=== PATIENT | male | born 1945 | race Caucasian/White ===

== ENCOUNTER 2020-11-03 21:12 | Observation (INO) | payer MEDICARE, OTHER ==
[~2020-11-03 21:12] MED LIST: atorvaSTATin 40 MG Tab PO SCH
[2020-11-03] MEDS ORDERED: Sodium Chloride 0.9% 2.5 ML Syringe FLUSH PRN (21:14)
[2020-11-03] MEDS ORDERED: Sodium Chloride 0.9% 10 ML Syringe FLUSH PRN (21:14)
[2020-11-03] MEDS ORDERED: Sodium Chloride 0.9% 10 ML SDV IV PRN (21:14)
[2020-11-03] MEDS ORDERED: Iopamidol 755 MG/ML 500 ML Multipack Bottle IVPUSH STA (21:22)
--- NOTE | 2020-11-03 21:44 | EDM.PDOC ---
ED HPI GENERAL MEDICAL PROBLEM - General Chief Complaint: Neuro Symptoms/Deficits Stated Complaint: RT SIDE NUMBNESS Time Seen by Provider: 11/03/20 21:16 Source of Information: Reports: Patient History Limitations: Reports: No Limitations - History of Present Illness INITIAL COMMENTS - FREE TEXT/NARRATIVE: 75-year-old male h/o GERD presents with right sided weakness and numbness with last known well = 7 PM. Patient denies fever, chills, headache, chest pain, shortness of breath, abdominal pain. ROS: A 10-point review of systems, other than pertinent positives and negatives as stated per HPI, is otherwise negative Past medical history: No additional pertinent history Past Surgical history: No additional pertinent history Social history: No additional pertinent history Family history: No additional pertinent history PHYSICAL EXAM General: AOx4, GCS = 15, No distress HEENT: dry mucous membrane Neck: supple, no meningismus, no Kernig or Brudzinski Cardiac: S1S2 RRR Respiratory: CTAB, no crackles or rales, no wheezing Abdomen: Soft, nontender, no rebound or guarding, nondistended, no pulsatile mass. Back: nontender Musculoskeletal: NVI distally, no deformity Neuro: No focal deficits, NIHSS = 1 for RLE drift - Related Data Allergies Allergy/AdvReac Type Severity Reaction Status Date / Time No Known Allergies Allergy Verified 11/03/20 21:18 Home Meds: Home Meds . [No Known Home Meds] 11/03/20 [History] ED ROS GENERAL - Review of Systems Review Of Systems: See Below (see dictation) ED EXAM, NEURO - Physical Exam Exam: See Below (see dictation) #1 Interpretation EKG Interpretation Comments: Heart rate = 80 bpm, normal sinus rhythm, normal QRS interval, no STEMI. EKG and rhythm strip interpreted by me at 2140 Course - Vital Signs Last Recorded V/S: Last Vital Signs Temp 97.4 F 11/03/20 21:19 Pulse 72 11/03/20 22:46 Resp 18 11/03/20 22:46 BP 136/90 11/03/20 22:46 Pulse Ox 93 L 11/03/20 22:46 - Orders/Labs/Meds Orders: Active Orders 24 hr Category Date Time Status Cardiac Monitoring [RC] . DIRECTED Care 11/03/20 21:14 Active EKG Documentation Completion [RC] STAT Care 11/03/20 21:14 Active Initiate Acute Stroke Protocol [RC] STAT Care 11/03/20 21:14 Active NIH Stroke Scale [RC] ASDIRECTED Care 11/03/20 21:14 Active Oxygen Therapy [RC] ASDIRECTED Care 11/03/20 21:14 Active UA W/MICROSCOPIC [URIN] Stat Lab 11/03/20 21:14 Ordered Sodium Chloride 0.9% [Normal Saline] Med 11/03/20 21:14 Active 10 ml IV ASDIRECTED PRN Sodium Chloride 0.9% [Saline Flush] Med 11/03/20 21:14 Active 10 ml FLUSH ASDIRECTED PRN Sodium Chloride 0.9% [Saline Flush] Med 11/03/20 21:14 Active 2.5 ml FLUSH ASDIRECTED PRN Peripheral IV Insertion Adult [OM.PC] Stat Oth 11/03/20 21:14 Ordered Medication Orders Sodium Chloride (Sodium Chloride 0.9% 10 Ml Syringe) 10 ml FLUSH ASDIRECTED PRN PRN Reason: Keep Vein Open Sodium Chloride (Sodium Chloride 0.9% 2.5 Ml Syringe) 2.5 ml FLUSH ASDIRECTED PRN PRN Reason: Keep Vein Open Sodium Chloride (Sodium Chloride 0.9% 10 Ml Sdv) 10 ml IV ASDIRECTED PRN PRN Reason: IV Use Labs: Laboratory Tests 11/03/20 11/03/20 11/03/20 Range/Units 21:15 21:15 21:15 WBC 6.59 (4.0-11.0) K/uL RBC 4.30 L (4.50-5.90) M/uL Hgb 13.8 (13.0-17.0) g/dL Hct 40.6 (38.0-50.0) % MCV 94.4 (80.0-98.0) fL MCH 32.1 H (27.0-32.0) pg MCHC 34.0 (31.0-37.0) g/dL RDW Std Deviation 50.5 (28.0-62.0) fl RDW Coeff of Ashley 15 (11.0-15.0) % Plt Count 195 (150-400) K/uL MPV 12.10 H (7.40-12.00) fL Neut % (Auto) 60.4 (48.0-80.0) % Lymph % (Auto) 29.1 (16.0-40.0) % Worth % (Auto) 8.5 (0.0-15.0) % Eos % (Auto) 1.8 (0.0-7.0) % Baso % (Auto) 0.2 (0.0-1.5) % Neut # (Auto) 4.0 (1.4-5.7) K/uL Lymph # (Auto) 1.9 (0.6-2.4) K/uL Worth # (Auto) 0.6 (0.0-0.8) K/uL Eos # (Auto) 0.1 (0.0-0.7) K/uL Baso # (Auto) 0.0 (0.0-0.1) K/uL Nucleated RBC % 0.0 /100WBC Nucleated RBCs # 0 K/uL INR 0.98 APTT 23.6 (18.6-31.3) SEC Sodium 141 (136-148) mmol/L Potassium 4.4 (3.5-5.1) mmol/L Chloride 106 (98-107) mmol/L Carbon Dioxide 25.9 (21.0-32.0) mmol/L BUN 20 H (7.0-18.0) mg/dL Creatinine 1.4 H (0.8-1.3) mg/dL Est Cr Clr Drug Dosing 50.04 mL/min Estimated GFR (MDRD) 49.4 ml/min Glucose 94 (74-106) mg/dL POC Glucose (70-99) mg/dL Calcium 8.6 (8.5-10.1) mg/dL Total Bilirubin 0.5 (0.2-1.0) mg/dL AST 14 L (15-37) IU/L ALT 14 (14-63) IU/L Alkaline Phosphatase 148 H (46-116) U/L Troponin I < 0.050 (0.000-0.056) ng/mL Total Protein 7.2 (6.4-8.2) g/dL Albumin 3.4 (3.4-5.0) g/dL Globulin 3.8 (2.6-4.0) g/dL Albumin/Globulin Ratio 0.9 (0.9-1.6) TSH 3rd Generation 3.35 (0.36-3.74) uIU/mL 11/03/20 Range/Units 22:08 WBC (4.0-11.0) K/uL RBC (4.50-5.90) M/uL Hgb (13.0-17.0) g/dL Hct (38.0-50.0) % MCV (80.0-98.0) fL MCH (27.0-32.0) pg MCHC (31.0-37.0) g/dL RDW Std Deviation (28.0-62.0) fl RDW Coeff of Ashley (11.0-15.0) % Plt Count (150-400) K/uL MPV (7.40-12.00) fL Neut % (Auto) (48.0-80.0) % Lymph % (Auto) (16.0-40.0) % Worth % (Auto) (0.0-15.0) % Eos % (Auto) (0.0-7.0) % Baso % (Auto) (0.0-1.5) % Neut # (Auto) (1.4-5.7) K/uL Lymph # (Auto) (0.6-2.4) K/uL Worth # (Auto) (0.0-0.8) K/uL Eos # (Auto) (0.0-0.7) K/uL Baso # (Auto) (0.0-0.1) K/uL Nucleated RBC % /100WBC Nucleated RBCs # K/uL INR APTT (18.6-31.3) SEC Sodium (136-148) mmol/L Potassium (3.5-5.1) mmol/L Chloride (98-107) mmol/L Carbon Dioxide (21.0-32.0) mmol/L BUN (7.0-18.0) mg/dL Creatinine (0.8-1.3) mg/dL Est Cr Clr Drug Dosing mL/min Estimated GFR (MDRD) ml/min Glucose (74-106) mg/dL POC Glucose 98 (70-99) mg/dL Calcium (8.5-10.1) mg/dL Total Bilirubin (0.2-1.0) mg/dL AST (15-37) IU/L ALT (14-63) IU/L Alkaline Phosphatase (46-116) U/L Troponin I (0.000-0.056) ng/mL Total Protein (6.4-8.2) g/dL Albumin (3.4-5.0) g/dL Globulin (2.6-4.0) g/dL Albumin/Globulin Ratio (0.9-1.6) TSH 3rd Generation (0.36-3.74) uIU/mL Meds: Medications Generic Name Dose Route Start Last Admin Trade Name Freq PRN Reason Stop Dose Admin Sodium Chloride 10 ml 11/03/20 21:14 Sodium Chloride 0.9% 10 Ml Syringe FLUSH ASDIRECTED PRN Keep Vein Open Sodium Chloride 2.5 ml 11/03/20 21:14 Sodium Chloride 0.9% 2.5 Ml Syringe FLUSH ASDIRECTED PRN Keep Vein Open Sodium Chloride 10 ml 11/03/20 21:14 Sodium Chloride 0.9% 10 Ml Sdv IV ASDIRECTED PRN IV Use Discontinued Medications Generic Name Dose Route Start Last Admin Trade Name Freq PRN Reason Stop Dose Admin Iopamidol 100 ml 11/03/20 21:22 11/03/20 21:36 Iopamidol 755 Mg/Ml 500 Ml Multipack Bottle IVPUSH 11/03/20 21:23 100 ml ONETIME STA Administration Departure - Departure Time of Disposition: 22:56 Disposition: Refer to Observation Condition: Good Clinical Impression: Stroke - Discharge Information *PRESCRIPTION DRUG MONITORING PROGRAM REVIEWED*: Not Applicable *COPY OF PRESCRIPTION DRUG MONITORING REPORT IN PATIENT MARIA C: Not Applicable Referrals: Steven Griffin MD [Primary Care Provider] - Forms: ED Department Discharge Sepsis Event Note (ED) - Evaluation Sepsis Screening Result: No Definite Risk - Focused Exam Vital Signs: Vital Signs Temp Pulse Resp BP Pulse Ox 11/03/20 22:46 72 18 136/90 93 L 11/03/20 22:15 73 18 135/84 94 L 11/03/20 22:00 77 18 142/87 H 94 L 11/03/20 21:45 75 18 152/95 H 93 L 11/03/20 21:19 97.4 F 87 18 147/89 H 96
[2020-11-03 21:57] LABS: BLOOD UREA NITROGEN,BUN 20 mg/dL (7.0-18.0); CARBON DIOXIDE,CO2 25.9 mmol/L (21.0-32.0); CHLORIDE,CL 106 mmol/L (98-107); GLUCOSE RANDOM 94 mg/dL (74-106); POTASSIUM,K 4.4 mmol/L (3.5-5.1); SODIUM,NA 141 mmol/L (136-148)
--- NOTE | 2020-11-03 21:57 | CT ---
HISTORY: Right-sided weakness. TECHNIQUE: Noncontrast head CT. COMPARISON: No prior. FINDINGS: There is no acute intracranial hemorrhage or acute ischemic infarct. No mass effect or midline shift. No hydrocephalus. No extra-axial collection or hematoma. No acute loss of dinero-white differentiation. The mastoid air cells are clear. Paranasal sinuses are clear. No acute skull fracture. IMPRESSION: No acute intracranial disease. Please note that all CT scans at this facility use dose modulation, iterative reconstruction, and/or weight-based dosing when appropriate to reduce radiation dose to as low as reasonably achievable. Dictated by Silvino Phillip MD @ 11/03/2020 9:55:[address] Silvino Phillip @ Nov 03 2020 9:55PM
--- NOTE | 2020-11-03 22:03 | CT ---
DATE: 11/03/2020 CLINICAL HISTORY: Patient with right-sided weakness. TECHNIQUE: Standard CT scanning of the head was performed. COMPARISON: None. FINDINGS: There is no intracranial hemorrhage. There is no territorial infarction. There are mild microangiopathic changes. There is diffuse parenchymal volume loss. There is no mass effect or midline shift. The calvarium is unremarkable. The orbits are unremarkable. The paranasal sinuses are unremarkable. The mastoid air cells are unremarkable. The soft tissues are unremarkable. IMPRESSION: 1. No intracranial hemorrhage or territorial infarction. 2. Mild microangiopathic changes and diffuse parenchymal volume loss. Please note that all CT scans at this facility use dose modulation, iterative reconstruction, and/or weight-based dosing when appropriate to reduce radiation dose to as low as reasonably achievable. Dictated by Lorri Zurita MD @ 11/04/2020 5:54:[address] Lorri Zurita @ Nov 04 2020 5:54AM
--- NOTE | 2020-11-03 22:16 | CT ---
DATE: 11/03/2020 CLINICAL HISTORY: Patient with right-sided weakness. TECHNIQUE: Standard helical CT image acquisition through the head and neck was performed after intravenous contrast bolus enhancement. Multiplanar reconstructed images were performed and interpreted. COMPARISON: CT same day. FINDINGS: The origins of the great vessels from the aortic arch are patent. The origin of the right vertebral artery is patent. The origin of the left vertebral artery is patent. The common carotid arteries are patent There is no stenosis at the origin of the right internal carotid artery. There is no stenosis at the origin of the left internal carotid artery. The rest of the cervical segments of the internal carotid arteries are patent up to their intracranial segments. The intracranial segments of the internal carotid arteries are patent. The vertebral arteries are codominant. The cervical segments of the vertebral arteries are patent. The intracranial segments of the vertebral arteries are patent, with mild intracranial atherosclerosis. The middle cerebral arteries are normal without aneurysm or proximal occlusion identified. The anterior cerebral arteries are normal without aneurysm or proximal occlusion identified. The anterior communicating artery is well visualized and appears normal. The basilar artery is normal without aneurysm or occlusion. The posterior cerebral arteries are normal without aneurysm or proximal occlusion. There is normal opacification of major intracranial venous structures. The visualized lung apices are unremarkable The thyroid gland is unremarkable. The soft tissues of the neck are unremarkable. There are degenerative changes in the cervical spine. IMPRESSION: Normal CT angiogram of the head and neck. Please note that all CT scans at this facility use dose modulation, iterative reconstruction, and/or weight-based dosing when appropriate to reduce radiation dose to as low as reasonably achievable. Dictated by Lorri Zurita MD @ 11/04/2020 5:59:[address] Lorri Zurita @ Nov 04 2020 5:59AM
--- NOTE | 2020-11-03 22:18 | CR ---
HISTORY: Right-sided weakness. TECHNIQUE: One view of the chest. COMPARISON: No prior. FINDINGS: Mildly shallow breath with mild bibasilar atelectasis. Mid to upper lung zones clear. No pneumothorax. Cardiac size within normal limits accounting for technique. Degenerative changes of the spine and shoulders. IMPRESSION: Low lung volumes with bibasilar atelectasis. Dictated by Silvino Phillip MD @ 11/03/2020 10:16:[address] Silvino Phillip @ Nov 03 2020 10:16PM
[2020-11-03] MEDS ORDERED: Albuterol/Ipratropium 3.0-0.5 MG/3 ML Neb Soln NEB PRN (23:22)
[2020-11-03] MEDS ORDERED: Acetaminophen 325 MG Tab PO PRN (23:22)
[2020-11-03] MEDS ORDERED: Ondansetron 4 MG/2 ML SDV IVPUSH PRN (23:22)
[2020-11-03 23:48] LABS: HEMOGLOBIN A1C 5.8 %
[2020-11-04] MEDS: Lactated Ringers 1,000 ML IV SCH ×2 (00:29→08:47)
[2020-11-04] MEDS: Aspirin 81 MG Tab.Chew PO SCH ×2 (00:39→08:17)
[2020-11-04 06:19] LABS: CARBON DIOXIDE,CO2 23.5 mmol/L (21.0-32.0); POTASSIUM,K 3.9 mmol/L (3.5-5.1)
[2020-11-04] MEDS ORDERED: Gadobenate Dimeglumine 529 MG/ML 20 ML SDV IVPUSH STA ×2 (07:35→07:41)
--- NOTE | 2020-11-04 08:30 | PCM.HP.2 ---
H&P History of Present Illness - General Date of Service: 11/04/20 Admit Problem/Dx: Admission Diagnosis/Problem Admission Diagnosis/Problem Stroke-like symptoms Source of Information: Patient History Limitations: Reports: No Limitations - History of Present Illness Initial Comments - Free Text/Narative: This 75-year-old male with past medical history of GERD presented to the ER with right-sided weakness and numbness. He reported his last known well time was approximately 7 PM. He reports that he has been having some right upper extremity numbness and weakness that comes and goes for approximately the last month. He did make an appointment last week with his PCP but then it was canceled due to scheduling issues and rescheduled for this coming Wednesday. He reports that last evening he had this numbness and tingling to his right upper extremity but then weakness to his right lower extremity which was different from previous events. He was concerned enough that he felt he should be evaluated and came to the ER. He reports he remembers in his brain telling his right foot to move but would not necessarily moved and then eventually it would. He reports this morning he is feeling much improved and having no further deficits. He denies any vision concerns no blurred vision or double vision. No neck pain. Denies any headache. Denies any chest pain or shortness of breath. No abdominal pain. No fevers or chills. He denies any history of events like this in the past. Denies any heart disease or CVAs in the past. Denies any diabetes or thyroid disease. 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 He denies any tobacco use, no alcohol use and no recreational drug use. In the ER EKG normal sinus rhythm no ST-T wave changes indicative of ischemia. Heart rate 80. Chest x-ray in the ER revealed low lung volumes with bibasilar atelectasis. Head CT revealed no acute intracranial mass. No hydrocephalus no extra-axial collection or hematoma. CTA of head and neck obtained which reveal no intracranial hemorrhage or infarction. Mild microangiopathic changes and diffuse parenchymal volume loss noted. CTA neck reveals normal CTA with no s ignificant stenosis within cerebral arteries or carotid arteries. No leukocytosis noted. Platelet count 195,000. Sodium 141 potassium 4.4. BUN/creatinine slightly elevated at 21.4. A1c 5.8 troponin negative triglycerides 133 total cholesterol 199 LDL 112 HDL 60 UA negative Covid swab negative. Vital signs in the ER stable. No significant hypertension noted blood pressure 147/89 heart rate 80[address] PCP [address]. Griffin Right Upper Pain Score (Numeric/FACES): 0 - Related Data Allergies/Adverse Reactions: Allergies Allergy/AdvReac Type Severity Reaction Status Date / Time No Known Allergies Allergy Verified 11/04/20 00:28 Home Medications: Home Meds . [No Known Home Meds] 11/03/20 [History] Past Medical History Cardiovascular History: Reports: None. Denies: Afib, Blood Clots/VTE/DVT, CAD, High Cholesterol, Hypertension Respiratory History: Reports: None. Denies: COPD, SOB Gastrointestinal History: Reports: GERD Musculoskeletal History: Reports: None Neurological History: Reports: None. Denies: CVA, Migraines, Seizure, TIA Psychiatric History: Reports: None Endocrine/Metabolic History: Denies: Diabetes, Type II - Infectious Disease History Infectious Disease History: Reports: Chicken Pox, Measles - Past Surgical History GI Surgical History: Reports: Other (See Below) Other GI Surgeries/Procedures: 8 inches of colon removed due to fistula 2019 Male Surgical History: Reports: Prostatectomy, Other (See Below) Other Male Surgeries/Procedures: "hole in the bladder" rapaired in 2019 Social & Family History - Family History Family Medical History: No Pertinent Family History - Tobacco Use Tobacco Use Status *Q: Never Tobacco User Second Hand Smoke Exposure: No - Caffeine Use Caffeine Use: Reports: Coffee - Alcohol Use Date of Last Drink: 11/01/20 - Recreational Drug Use Recreational Drug Use: No - Living Situation & Occupation Living situation: Reports: Occupation: Retired H&P Review of Systems - Review of Systems: Review Of Systems: See Below General: Denies: Fever, Chills, Malaise HEENT: Reports: No Symptoms. Denies: Headaches, Sinus Congestion, Sore Throat, Vertigo Pulmonary: Reports: No Symptoms. Denies: Shortness of Breath Cardiovascular: Reports: No Symptoms. Denies: Chest Pain Gastrointestinal: Reports: No Symptoms. Denies: Abdominal Pain, Black Stool, Bloody Stool, Nausea, Vomiting Genitourinary: Reports: No Symptoms. Denies: Dysuria, Frequency Musculoskeletal: Reports: No Symptoms Skin: Reports: No Symptoms Psychiatric: Reports: No Symptoms Neurological: Reports: No Symptoms Hematologic/Lymphatic: Reports: No Symptoms Immunologic: Reports: No Symptoms Exam - Exam Exam: See Below - Vital Signs Vital Signs: Last Vital Signs Temp 97.3 F 11/04/20 08:00 Pulse 65 11/04/20 08:00 Resp 22 H 11/04/20 08:00 BP 139/91 H 11/04/20 08:00 Pulse Ox 93 L 11/04/20 08:00 Weight: 79.832 kg - Exam General: Alert, Oriented, Cooperative HEENT: Conjunctiva Clear, Mucosa Moist & Ages, Posterior Pharynx Clear Neck: Supple, Trachea Midline Lungs: Clear to Auscultation, Normal Respiratory Effort Cardiovascular: Regular Rate, Regular Rhythm GI/Abdominal Exam: Normal Bowel Sounds, Soft, Non-Tender Extremities: Normal Inspection, Normal Range of Motion, Non-Tender, No Pedal E charisse Skin: Warm, Dry Neuro Extensive - Mental Status: Alert, Oriented x3, Normal Mood/Affect Neuro Extensive - Motor, Sensory, Reflexes: CN II-XII Intact, Normal Gait. No: Ataxia, Tongue Deviation (L), Tongue Deviation (R), Dysarthria, Facial palsy (L), Facial Palsy (R) Psychiatric: Alert, Normal Affect, Normal Mood - Patient Data Lab Results Last 24 hrs: Laboratory Results - last 24 hr 11/03/20 11/03/20 11/03/20 Range/Units 21:15 21:15 21:15 WBC 6.59 (4.0-11.0) K/uL RBC 4.30 L (4.50-5.90) M/uL Hgb 13.8 (13.0-17.0) g/dL Hct 40.6 (38.0-50.0) % MCV 94.4 (80.0-98.0) fL MCH 32.1 H (27.0-32.0) pg MCHC 34.0 (31.0-37.0) g/dL RDW Std Deviation 50.5 (28.0-62.0) fl RDW Coeff of Ashley 15 (11.0-15.0) % Plt Count 195 (150-400) K/uL MPV 12.10 H (7.40-12.00) fL Neut % (Auto) 60.4 (48.0-80.0) % Lymph % (Auto) 29.1 (16.0-40.0) % [place] % (Auto) 8.5 (0.0-15.0) % Eos % (Auto) 1.8 (0.0-7.0) % Baso % (Auto) 0.2 (0.0-1.5) % Neut # (Auto) 4.0 (1.4-5.7) K/uL Lymph # (Auto) 1.9 (0.6-2.4) K/uL [place] # (Auto) 0.6 (0.0-0.8) K/uL Eos # (Auto) 0.1 (0.0-0.7) K/uL Baso # (Auto) 0.0 (0.0-0.1) K/uL Nucleated RBC % 0.0 /100WBC Nucleated RBCs # 0 K/uL INR 0.98 APTT 23.6 (18.6-31.3) SEC Sodium 141 (136-148) mmol/L Potassium 4.4 (3.5-5.1) mmol/L Chloride 106 (98-107) mmol/L Carbon Dioxide 25.9 (21.0-32.0) mmol/L BUN 20 H (7.0-18.0) mg/dL Creatinine 1.4 H (0.8-1.3) mg/dL Est Cr Clr Drug Dosing 50.04 mL/min Estimated GFR (MDRD) 49.4 ml/min Glucose 94 (74-106) mg/dL POC Glucose (70-99) mg/dL Hemoglobin A1c (4.5 - 6.2) % Calcium 8.6 (8.5-10.1) mg/dL Total Bilirubin 0.5 (0.2-1.0) mg/dL AST 14 L (15-37) IU/L ALT 14 (14-63) IU/L Alkaline Phosphatase 148 H (46-116) U/L Troponin I < 0.050 (0.000-0.056) ng/mL Total Protein 7.2 (6.4-8.2) g/dL Albumin 3.4 (3.4-5.0) g/dL Globulin 3.8 (2.6-4.0) g/dL Albumin/Globulin Ratio 0.9 (0.9-1.6) Triglycerides (0-200) mg/dL Cholesterol (50-200) mg/dL LDL Cholesterol, Calc (60-180) mg/dL VLDL Cholesterol (5-55) mg/dL HDL Cholesterol (40-60) mg/dL Cholesterol/HDL Ratio (3.3-6.0) TSH 3rd Generation 3.35 (0.36-3.74) uIU/mL Urine Color Urine Appearance Urine pH (5.0-8.0) Ur Specific [place] (1.001-1.035) Urine Protein (NEGATIVE) mg/dL Urine Glucose (UA) (NEGATIVE) mg/dL Urine Ketones (NEGATIVE) mg/dL Urine Occult Blood (NEGATIVE) Urine Nitrite (NEGATIVE) Urine Bilirubin (NEGATIVE) Urine Urobilinogen (<2.0) EU/dL Ur Leukocyte Esterase (NEGATIVE) Urine RBC (0-2/HPF) Urine WBC (0-5/HPF) Ur Epithelial Cells (NONE-FEW) Urine Bacteria (NEGATIVE) SARS-CoV-2 RNA (CHRISTOPHE) (NEGATIVE) 11/03/20 11/03/20 11/03/20 Range/Units 21:15 21:15 22:08 WBC (4.0-11.0) K/uL RBC (4.50-5.90) M/uL Hgb (13.0-17.0) g/dL Hct (38.0-50.0) % MCV (80.0-98.0) fL MCH (27.0-32.0) pg MCHC (31.0-37.0) g/dL RDW Std Deviation (28.0-62.0) fl RDW Coeff of Ashley (11.0-15.0) % Plt Count (150-400) K/uL MPV (7.40-12.00) fL Neut % (Auto) (48.0-80.0) % Lymph % (Auto) (16.0-40.0) % [place] % (Auto) (0.0-15.0) % Eos % (Auto) (0.0-7.0) % Baso % (Auto) (0.0-1.5) % Neut # (Auto) (1.4-5.7) K/uL Lymph # (Auto) (0.6-2.4) K/uL [place] # (Auto) (0.0-0.8) K/uL Eos # (Auto) (0.0-0.7) K/uL Baso # (Auto) (0.0-0.1) K/uL Nucleated RBC % /100WBC Nucleated RBCs # K/uL INR APTT (18.6-31.3) SEC Sodium (136-148) mmol/L Potassium (3.5-5.1) mmol/L Chloride (98-107) mmol/L Carbon Dioxide (21.0-32.0) mmol/L BUN (7.0-18.0) mg/dL Creatinine (0.8-1.3) mg/dL Est Cr Clr Drug Dosing mL/min Estimated GFR (MDRD) ml/min Glucose (74-106) mg/dL POC Glucose 98 (70-99) mg/dL Hemoglobin A1c 5.8 (4.5 - 6.2) % Calcium (8.5-10.1) mg/dL Total Bilirubin (0.2-1.0) mg/dL AST (15-37) IU/L ALT (14-63) IU/L Alkaline Phosphatase (46-116) U/L Troponin I (0.000-0.056) ng/mL Total Protein (6.4-8.2) g/dL Albumin (3.4-5.0) g/dL Globulin (2.6-4.0) g/dL Albumin/Globulin Ratio (0.9-1.6) Triglycerides 133 (0-200) mg/dL Cholesterol 199 (50-200) mg/dL LDL Cholesterol, Calc 112 (60-180) mg/dL VLDL Cholesterol 26 (5-55) mg/dL HDL Cholesterol 60 (40-60) mg/dL Cholesterol/HDL Ratio 3.3 (3.3-6.0) TSH 3rd Generation (0.36-3.74) uIU/mL Urine Color Urine Appearance Urine pH (5.0-8.0) Ur Specific [place] (1.001-1.035) Urine Protein (NEGATIVE) mg/dL Urine Glucose (UA) (NEGATIVE) mg/dL Urine Ketones (NEGATIVE) mg/dL Urine Occult Blood (NEGATIVE) Urine Nitrite (NEGATIVE) Urine Bilirubin (NEGATIVE) Urine Urobilinogen (<2.0) EU/dL Ur Leukocyte Esterase (NEGATIVE) Urine RBC (0-2/HPF) Urine WBC (0-5/HPF) Ur Epithelial Cells (NONE-FEW) Urine Bacteria (NEGATIVE) SARS-CoV-2 RNA (CHRISTOPHE) (NEGATIVE) 11/03/20 11/04/20 11/04/20 Range/Units 22:54 04:30 05:18 WBC (4.0-11.0) K/uL RBC (4.50-5.90) M/uL Hgb (13.0-17.0) g/dL Hct (38.0-50.0) % MCV (80.0-98.0) fL MCH (27.0-32.0) pg MCHC (31.0-37.0) g/dL RDW Std Deviation (28.0-62.0) fl RDW Coeff of Ashley (11.0-15.0) % Plt Count (150-400) K/uL MPV (7.40-12.00) fL Neut % (Auto) (48.0-80.0) % Lymph % (Auto) (16.0-40.0) % [place] % (Auto) (0.0-15.0) % Eos % (Auto) (0.0-7.0) % Baso % (Auto) (0.0-1.5) % Neut # (Auto) (1.4-5.7) K/uL Lymph # (Auto) (0.6-2.4) K/uL [place] # (Auto) (0.0-0.8) K/uL Eos # (Auto) (0.0-0.7) K/uL Baso # (Auto) (0.0-0.1) K/uL Nucleated RBC % /100WBC Nucleated RBCs # K/uL INR APTT (18.6-31.3) SEC Sodium 141 (136-148) mmol/L Potassium 3.9 (3.5-5.1) mmol/L Chloride 107 (98-107) mmol/L Carbon Dioxide 23.5 (21.0-32.0) mmol/L BUN 17 (7.0-18.0) mg/dL Creatinine 1.2 (0.8-1.3) mg/dL Est Cr Clr Drug Dosing 58.38 mL/min Estimated GFR (MDRD) 59.0 ml/min Glucose 89 (74-106) mg/dL POC Glucose (70-99) mg/dL Hemoglobin A1c (4.5 - 6.2) % Calcium 8.2 L (8.5-10.1) mg/dL Total Bilirubin (0.2-1.0) mg/dL AST (15-37) IU/L ALT (14-63) IU/L Alkaline Phosphatase (46-116) U/L Troponin I (0.000-0.056) ng/mL Total Protein (6.4-8.2) g/dL Albumin (3.4-5.0) g/dL Globulin (2.6-4.0) g/dL Albumin/Globulin Ratio (0.9-1.6) Triglycerides (0-200) mg/dL Cholesterol (50-200) mg/dL LDL Cholesterol, Calc (60-180) mg/dL VLDL Cholesterol (5-55) mg/dL HDL Cholesterol (40-60) mg/dL Cholesterol/HDL Ratio (3.3-6.0) TSH 3rd Generation (0.36-3.74) uIU/mL Urine Color YELLOW Urine Appearance CLEAR Urine pH 6.0 (5.0-8.0) Ur Specific [place] 1.010 (1.001-1.035) Urine Protein NEGATIVE (NEGATIVE) mg/dL Urine Glucose (UA) NEGATIVE (NEGATIVE) mg/dL Urine Ketones NEGATIVE (NEGATIVE) mg/dL Urine Occult Blood NEGATIVE (NEGATIVE) Urine Nitrite NEGATIVE (NEGATIVE) Urine Bilirubin NEGATIVE (NEGATIVE) Urine Urobilinogen 0.2 (<2.0) EU/dL Ur Leukocyte Esterase NEGATIVE (NEGATIVE) Urine RBC 0-1 (0-2/HPF) Urine WBC 0-1 (0-5/HPF) Ur Epithelial Cells RARE (NONE-FEW) Urine Bacteria RARE (NEGATIVE) SARS-CoV-2 RNA (CHRISTOPHE) NEGATIVE (NEGATIVE) Result Diagrams: 11/03/20 21:15 11/04/20 05:18 Sepsis Event Note - Evaluation Sepsis Screening Result: No Definite Risk - Focused Exam Vital Signs: Vital Signs Temp Pulse Resp BP Pulse Ox Pulse Ox 11/04/20 08:00 97.3 F 65 22 H 139/91 H 93 L 11/04/20 04:30 97.7 F 74 16 125/74 94 L 11/04/20 00:27 97.2 F 74 16 142/87 H 95 95 11/03/20 22:46 72 18 136/90 93 L 07/11/21 22:15 73 18 135/84 94 L 11/03/20 22:00 77 18 142/87 H 94 L 11/03/20 21:45 75 18 152/95 H 93 L 11/03/20 21:19 97.4 F 87 18 147/89 H 96 - Problem List (1) CVA (cerebral vascular accident) SNOMED Code(s): 208901285 ICD Code: I63.9 - CEREBRAL INFARCTION, UNSPECIFIED Status: Acute Current Visit: Yes Qualifiers: Laterality of affected vessel: left (2) HTN (hypertension) SNOMED Code(s): 68489919 ICD Code: I10 - ESSENTIAL (PRIMARY) HYPERTENSION Status: Acute Current Visit: Yes Qualifiers: Hypertension type: primary hypertension Qualified Code(s): I10 - Essential (primary) hypertension (3) HLD (hyperlipidemia) SNOMED Code(s): 12216554 ICD Code: E78.5 - HYPERLIPIDEMIA, UNSPECIFIED Status: Acute Current Visit: Yes Qualifiers: Hyperlipidemia type: moderate mixed hyperlipidemia not requiring statin therapy Qualified Code(s): E78.2 - Mixed hyperlipidemia (4) GERD (gastroesophageal reflux disease) SNOMED Code(s): 112625864 ICD Code: K21.9 - GASTRO-ESOPHAGEAL REFLUX DISEASE WITHOUT ESOPHAGITIS Status: Chronic Current Visit: Yes Problem List Initiated/Reviewed/Updated: Yes Orders Last 24hrs: Active Orders 24 hr Category Date Time Status Patient Status [ADT] Routine ADT 11/03/20 22:54 Active Ambulate [RC] ASDIRECTED Care 11/03/20 23:22 Active Antiembolic Devices [RC] PER UNIT ROUTINE Care 11/03/20 23:24 Active Cardiac Monitoring [RC] . DIRECTED Care 11/04/20 00:05 Active EKG Documentation Completion [RC] STAT Care 11/03/20 21:14 Active Initiate Acute Stroke Protocol [RC] STAT Care 11/03/20 21:14 Active NIH Stroke Scale [RC] ASDIRECTED Care 11/03/20 21:14 Active Neuro Check [RC] BID Care 11/03/20 23:31 Active Oxygen Therapy [RC] ASDIRECTED Care 11/03/20 21:14 Active Oxygen Therapy [RC] PRN Care 11/03/20 23:23 Active Pulse Oximetry [RC] PRN Care 11/03/20 23:23 Active RT Aerosol Therapy [RC] ASDIRECTED Care 11/03/20 23:25 Active Telemetry Monitoring [Cardiac Monitoring] [RC] Q8H Care 11/04/20 00:05 Active VTE/DVT Education [RC] PER UNIT ROUTINE Care 11/03/20 23:23 Active Vital Signs [RC] Q4H Care 11/03/20 23:23 Active Heart Healthy Diet [DIET] Diet 11/03/20 Dinner Active Brain w wo Cont [MR] Routine Exams 11/03/20 23:25 Ordered Echo Comp wo Cont [US] Routine Exams 11/04/20 23:30 Ordered Acetaminophen [TylenoL] Med 11/03/20 23:22 Active 650 mg PO Q4H PRN Albuterol/Ipratropium [DuoNeb 3.0-0.5 MG/3 ML] Med 11/03/20 23:22 Active 3 ml NEB Q4HRRT PRN Aspirin Med 11/03/20 23:30 Active 81 mg PO DAILY Lactated Ringers [Ringers, Lactated] 1,000 ml Med 11/03/20 23:30 Active IV ASDIRECTED Ondansetron [Zofran] Med 11/03/20 23:22 Active 4 mg IVPUSH Q4H PRN Sodium Chloride 0.9% [Normal Saline] Med 11/03/20 21:14 Active 10 ml IV ASDIRECTED PRN Sodium Chloride 0.9% [Saline Flush] Med 11/03/20 21:14 Active 10 ml FLUSH ASDIRECTED PRN Sodium Chloride 0.9% [Saline Flush] Med 11/03/20 21:14 Active 2.5 ml FLUSH ASDIRECTED PRN atorvaSTATin [Lipitor] Med 11/03/20 21:00 Active 40 mg PO BEDTIME Peripheral IV Insertion Adult [OM.PC] Stat Oth 11/03/20 21:14 Ordered Sequential Compression Device [OM.PC] Per Unit Routine Oth 11/03/20 23:23 Ordered Medication Orders Acetaminophen (Acetaminophen 325 Mg Tab) 650 mg PO Q4H PRN PRN Reason: Pain (Mild 1-3)/fever Albuterol/Ipratropium (Albuterol/Ipratropium 3.0-0.5 Mg/3 Ml Neb Soln) 3 ml NEB Q4HRRT PRN PRN Reason: Shortness Of Breath/wheezing Aspirin (Aspirin 81 Mg Tab.Chew) 81 mg PO DAILY [facility] Last Admin: 11/04/20 08:17 Dose: 81 mg Documented by: Admin: 11/04/20 00:39 Dose: 81 mg Documented by: MIMI Atorvastatin Calcium (Atorvastatin 40 Mg Tab) 40 mg PO BEDTIME [facility] Last Admin: 11/04/20 00:39 Dose: 40 mg Documented by: MIMI Lactated Ringer's (Ringers, Lactated) 1,000 mls @ 125 mls/hr IV ASDIRECTED [facility] Last Admin: 11/04/20 00:29 Dose: 125 mls/hr Documented by: MIMI Ondansetron HCl (Ondansetron 4 Mg/2 Ml Sdv) 4 mg IVPUSH Q4H PRN PRN Reason: Nausea/Vomiting Sodium Chloride (Sodium Chloride 0.9% 10 Ml Syringe) 10 ml FLUSH ASDIRECTED PRN PRN Reason: Keep Vein Open Sodium Chloride (Sodium Chloride 0.9% 2.5 Ml Syringe) 2.5 ml FLUSH ASDIRECTED PRN PRN Reason: Keep Vein Open Sodium Chloride (Sodium Chloride 0.9% 10 Ml Sdv) 10 ml IV ASDIRECTED PRN PRN Reason: IV Use Assessment/Plan Comment:: This 75-year-old male admitted with right upper extremity enlarging numbness tingling and weakness. 1. Acute ischemic CVA -MRI brain obtained today which revealed small foci of recent ischemic infarction noted within the posterior superior left cerebral hemisphere, no hemorrhage or mass-effect at this time. Small chronic infarct in the left occipital lobe mild chronic small vessel ischemic changes noted. - TSH 3.35. - Total cholesterol 199 triglycerides 133 LDL 112 HDL 60. - A1c 5.8 - Echo obtained which reveals left ventricular ejection fraction 60 to 65%. Normal left ventricular systolic function. Impaired relaxation grade 1 pattern LV diastolic filling. Normal right ventricular size, wall thickness and systolic function. Mild aortic valve sclerosis without stenosis. Trace mitral valve regurgitation trace tricuspid valve regurgitation. Right ventricular systolic pressure normal at 26 mmHg. No regional wall abnormalities. -Continue high-dose statin atorvastatin 80 mg daily. -Continue aspirin -Continue to monitor on telemetry for any arrhythmia -Mild elevated blood pressures noted will start lisinopril 5 mg. -Follow-up with PCP as well as referral to Dr. Goins, neurology. -Patient and family updated at bedside. -Consult PT OT for further evaluation consider home health or outpatient therapies. -We will order Zio patch on discharge VTE prophylaxis; Lovenox CODE STATUS: Full code Dispo: Likely home tomorrow as long as patient remained stable blood pressure remained stable.
[2020-11-04] MEDS ORDERED: Sodium Chloride 0.9% 2.5 ML Syringe FLUSH PRN (08:31)
--- NOTE | 2020-11-04 09:11 | MR ---
INDICATION: Right arm weakness. Suspect CVA. TECHNIQUE: Sagittal T1 axial FLAIR T2 susceptibility weighted diffusion-weighted and gadolinium enhanced volumetric T1 weighted sequences. COMPARISON: CT and CTA examinations on 11/03/2020. FINDINGS: There are several small foci of diffusion restriction FLAIR/T2 hyperintensity within the superior portion of the left cerebral hemisphere. These are noted within the posterior left frontal and anterior parietal lobes including the superior frontal gyrus and postcentral gyrus. Findings consistent with small recent ischemic infarcts. There is no associated hemorrhage or mass effect. A few additional scattered small foci of FLAIR and T2 hyperintensity within the cerebral white matter consistent with mild chronic small vessel ischemic disease. Small chronic cortical infarct in the left occipital lobe. No focal lesion in the brainstem or cerebellum. No enhancing intra-axial or extra-axial lesions are seen. The orbits sella turcica paranasal sinuses and skullbase are unremarkable. IMPRESSION: 1. Small foci of recent ischemic infarction noted within the posterior superior left cerebral hemisphere. No hemorrhage or mass effect at this time. 2. Small chronic infarct in the left occipital lobe. Mild chronic small vessel ischemic changes. Dictated by Hiren Stephenson MD @ 11/04/2020 9:11:[address] Hiren Stephenson @ Nov 04 2020 9:11AM
[2020-11-04] MEDS: atorvaSTATin 40 MG Tab PO SCH (20:20)
[2020-11-05] MEDS: Aspirin 81 MG Tab.Chew PO SCH (08:07)
--- NOTE | 2020-11-05 13:42 | ECHO ---
EXAM DATE: 11/03/20 PATIENT'S AGE: 75 The ECHO report has been scanned into [email or web address] and can be seen in this patient's EMR (Electronic Medical Record) under the REPORTS section. The report has also been scanned into PACS. [facility]
--- NOTE | 2020-11-05 15:31 | PCM.PN ---
- General Info Date of Service: 11/05/20 Admission Dx/Problem (Free Text): Admission Diagnosis/Problem Admission Diagnosis/Problem Stroke-like symptoms Subjective Update: Early this morning patient feeling well and eager to go home. Spoke with him and his daughter at bedside. On second rounds with Dr. Gandhi patient started complaining of dizziness he reports he had gotten up in for little unsteady was able to still walk to the bathroom and back. Denies any neurologic changes. Assessed no nystagmus noted. He denies any chest pain shortness of breath or palpitations. Functional Status: Reports: Pain Controlled, Tolerating Diet, Ambulating, Urinating - Review of Systems General: Reports: No Symptoms. Denies: Weakness, Fatigue HEENT: Reports: Other (Dizziness). Denies: Visual Changes Pulmonary: Reports: No Symptoms. Denies: Shortness of Breath Cardiovascular: Reports: No Symptoms. Denies: Chest Pain Gastrointestinal: Reports: No Symptoms. Denies: Abdominal Pain, Nausea, Vomiting Genitourinary: Reports: No Symptoms. Denies: Dysuria, Frequency Musculoskeletal: Reports: No Symptoms Skin: Reports: No Symptoms Neurological: Reports: Dizziness. Denies: Trouble Speaking, Difficulty Walking, Change in Speech Psychiatric: Reports: No Symptoms - Patient Data Vitals - Most Recent: Last Vital Signs Temp 98.5 F 11/05/20 13:00 Pulse 78 11/05/20 13:00 Resp 16 11/05/20 13:00 BP 131/85 11/05/20 13:00 Pulse Ox 94 L 11/05/20 13:00 Weight - Most Recent: 79.832 kg I&O - Last 24 Hours: Intake & Output 11/05/20 11/05/20 11/05/20 06:59 14:59 22:59 Intake Total 750 Output Total 900 Balance -150 Lab Results Last 24 Hours: Laboratory Results - last 24 hr 11/05/20 Range/Units 11:35 POC Glucose 138 H (70-99) mg/dL Med Orders - Current: Current Medications Acetaminophen (Acetaminophen 325 Mg Tab) 650 mg PO Q4H PRN PRN Reason: Pain (Mild 1-3)/fever Albuterol/Ipratropium (Albuterol/Ipratropium 3.0-0.5 Mg/3 Ml Neb Soln) 3 ml NEB Q4HRRT PRN PRN Reason: Shortness Of Breath/wheezing Aspirin (Aspirin 81 Mg Tab.Chew) 81 mg PO DAILY [facility] Last Admin: 11/05/20 08:07 Dose: 81 mg Documented by: Atorvastatin Calcium (Atorvastatin 40 Mg Tab) 80 mg PO BEDTIME [facility] Last Admin: 11/04/20 20:20 Dose: 80 mg Documented by: Ondansetron HCl (Ondansetron 4 Mg/2 Ml Sdv) 4 mg IVPUSH Q4H PRN PRN Reason: Nausea/Vomiting Sodium Chloride (Sodium Chloride 0.9% 2.5 Ml Syringe) 2.5 ml FLUSH ASDIRECTED PRN PRN Reason: Keep Vein Open Discontinued Medications Atorvastatin Calcium (Atorvastatin 40 Mg Tab) 40 mg PO BEDTIME [facility] Last Admin: 11/04/20 00:39 Dose: 40 mg Documented by: Gadobenate Dimeglumine (Gadobenate Dimeglumine 529 Mg/Ml 20 Ml Sdv) 20 ml IVPUSH ONETIME STA Stop: 11/04/20 07:42 Last Admin: 11/04/20 07:43 Dose: 15 ml Documented by: Lactated Ringer's (Ringers, Lactated) 1,000 mls @ 125 mls/hr IV ASDIRECTED [facility] Last Admin: 11/04/20 08:47 Dose: 125 mls/hr Documented by: Iopamidol (Iopamidol 755 Mg/Ml 500 Ml Multipack Bottle) 100 ml IVPUSH ONETIME STA Stop: 11/03/20 21:23 Last Admin: 11/03/20 21:36 Dose: 100 ml Documented by: Sodium Chloride (Sodium Chloride 0.9% 10 Ml Syringe) 10 ml FLUSH ASDIRECTED PRN PRN Reason: Keep Vein Open Sodium Chloride (Sodium Chloride 0.9% 2.5 Ml Syringe) 2.5 ml FLUSH ASDIRECTED PRN PRN Reason: Keep Vein Open Sodium Chloride (Sodium Chloride 0.9% 10 Ml Sdv) 10 ml IV ASDIRECTED PRN PRN Reason: IV Use - Exam Quality Assessment: DVT Prophylaxis. No: Supplemental Oxygen General: Alert, Oriented, Cooperative, No Acute Distress Lungs: Clear to Auscultation, Normal Respiratory Effort Cardiovascular: Regular Rate, Regular Rhythm GI/Abdominal Exam: Normal Bowel Sounds, Soft, Non-Tender Extremities: Normal Inspection, Normal Range of Motion, Non-Tender, No Pedal Edema Wound/Incisions: Healing Well Neurological: No New Focal Deficit, Normal Gait, Normal Speech, Strength Equal Bilateral Psy/Mental Status: Alert, Normal Affect, Normal Mood - Patient Data Lab Results Last 24 hrs: Laboratory Results - last 24 hr 11/05/20 Range/Units 11:35 POC Glucose 138 H (70-99) mg/dL Result Diagrams: 11/03/20 21:15 11/04/20 05:18 Sepsis Event Note - Evaluation Sepsis Screening Result: No Definite Risk - Focused Exam Vital Signs: Vital Signs Temp Pulse Resp BP Pulse Ox 11/05/20 13:00 98.5 F 78 16 131/85 94 L 11/05/20 09:17 98.7 F 70 16 134/90 96 11/05/20 04:00 97.7 F 70 16 122/78 93 L - Problem List & Annotations (1) CVA (cerebral vascular accident) SNOMED Code(s): 732780221 Code(s): I63.9 - CEREBRAL INFARCTION, UNSPECIFIED Status: Acute Current Visit: Yes Qualifiers: Laterality of affected vessel: left (2) HTN (hypertension) SNOMED Code(s): 66571471 Code(s): I10 - ESSENTIAL (PRIMARY) HYPERTENSION Status: Acute Current Visit: Yes Qualifiers: Hypertension type: primary hypertension Qualified Code(s): I10 - Essential (primary) hypertension (3) HLD (hyperlipidemia) SNOMED Code(s): 50297424 Code(s): E78.5 - HYPERLIPIDEMIA, UNSPECIFIED Status: Acute Current Visit: Yes Qualifiers: Hyperlipidemia type: moderate mixed hyperlipidemia not requiring statin therapy Qualified Code(s): E78.2 - Mixed hyperlipidemia (4) GERD (gastroesophageal reflux disease) SNOMED Code(s): 367369303 Code(s): K21.9 - GASTRO-ESOPHAGEAL REFLUX DISEASE WITHOUT ESOPHAGITIS Status: Chronic Current Visit: Yes - Problem List Review Problem List Initiated/Reviewed/Updated: Yes - My Orders Last 24 Hours: My Active Orders 11/04/20 21:00 atorvaSTATin [Lipitor] 80 mg PO BEDTIME 11/05/20 11:08 Ready for Discharge [RC] PER UNIT ROUTINE 11/05/20 11:32 PT Evaluation and Treatment [CONS] Routine - Plan Plan:: This 75-year-old male admitted with right upper extremity enlarging numbness tingling and weakness. 1. Acute ischemic CVA -MRI brain obtained today which revealed small foci of recent ischemic infarction noted within the posterior superior left cerebral hemisphere, no hemorrhage or mass-effect at this time. Small chronic infarct in the left occipital lobe mild chronic small vessel ischemic changes noted. - TSH 3.35. - Total cholesterol 199 triglycerides 133 LDL 112 HDL 60. - A1c 5.8 - Echo obtained which reveals left ventricular ejection fraction 60 to 65%. Normal left ventricular systolic function. Impaired relaxation grade 1 pattern LV diastolic filling. Normal right ventricular size, wall thickness and systolic function. Mild aortic valve sclerosis without stenosis. Trace mitral valve regurgitation trace tricuspid valve regurgitation. Right ventricular systolic pressure normal at 26 mmHg. No regional wall abnormalities. -Continue high-dose statin atorvastatin 80 mg daily. -Continue aspirin -Continue to monitor on telemetry for any arrhythmia -Hold off on starting lisinopril due to blood pressures being well controlled at this time. -Follow-up with PCP as well as referral to Dr. Goins, neurology. -Patient and family updated at bedside. -Consult PT OT for further evaluation consider home health or outpatient therapies. -We will order Zio patch on discharge -Dizziness started this morning after initial rounds. Will consult PT for vestibular evaluation no nystagmus noted no worsening neurologic symptoms. Patient able to ambulate well. No weakness noted to upper extremities or lower extremities. Could be related to deconditioning and/or sequelae of stroke. We will continue to monitor today likely discharge home in the morning VTE prophylaxis; SCDs and ambulation CODE STATUS: Full code Dispo: Possible home in a.m.
[2020-11-05] MEDS: atorvaSTATin 40 MG Tab PO SCH (20:14)
[2020-11-06] MEDS: Aspirin 81 MG Tab.Chew PO SCH (08:14)
--- NOTE | 2020-11-06 10:43 | PCM.DCSUM1 ---
Discharge Summary - Hospital Course Brief History: This 75-year-old male with past medical history of GERD presented to the ER with right-sided weakness and numbness. He reported his last known well time was approximately 7 PM. He reports that he has been having some right upper extremity numbness and weakness that comes and goes for approximately the last month. He did make an appointment last week with his PCP but then it was canceled due to scheduling issues and rescheduled for this coming Wednesday. He reports that last evening he had this numbness and tingling to his right upper extremity but then weakness to his right lower extremity which was different from previous events. He was concerned enough that he felt he should be evaluated and came to the ER. He reports he remembers in his brain telling his right foot to move but would not necessarily moved and then eventually it would. He reports this morning he is feeling much improved and having no further deficits. He denies any vision concerns no blurred vision or double vision. No neck pain. Denies any headache. Denies any chest pain or shortness of breath. No abdominal pain. No fevers or chills. He denies any history of events like this in the past. Denies any heart disease or CVAs in the past. Denies any diabetes or thyroid disease. 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 He denies any tobacco use, no alcohol use and no recreational drug use. In the ER EKG normal sinus rhythm no ST-T wave changes indicative of ischemia. Heart rate 80. Chest x-ray in the ER revealed low lung volumes with bibasilar atelectasis. Head CT revealed no acute intracranial mass. No hydrocephalus no extra-axial collection or hematoma. CTA of head and neck obtained which reveal no intracranial hemorrhage or infarction. Mild microangiopathic changes and diffuse parenchymal volume loss noted. CTA neck reveals normal CTA with no significant stenosis within cerebral arteries or carotid arteries. No leukocytosis noted. Platelet count 195,000. Sodium 141 potassium 4.4. BUN/creatinine slightly elevated at 21.4. A1c 5.8 troponin negative triglycerides 133 total cholesterol 199 LDL 112 HDL 60 UA negative Covid swab negative. Vital signs in the ER stable. No significant hypertension noted blood pressure 147/89 heart rate 80s. Diagnosis: Stroke: No - Discharge Data Discharge Date: 11/06/20 Discharge Disposition: Home, Self-Care 01 Condition: Stable - Referral to Home Health Primary Care Physician: Steven Griffin MD - Discharge Diagnosis/Problem(s) (1) CVA (cerebral vascular accident) SNOMED Code(s): 777404408 ICD Code: I63.9 - CEREBRAL INFARCTION, UNSPECIFIED Status: Acute Qualifiers: Laterality of affected vessel: left (2) HTN (hypertension) SNOMED Code(s): 65752924 ICD Code: I10 - ESSENTIAL (PRIMARY) HYPERTENSION Status: Acute Qualifiers: Hypertension type: primary hypertension Qualified Code(s): I10 - Essential (primary) hypertension (3) HLD (hyperlipidemia) SNOMED Code(s): 01997932 ICD Code: E78.5 - HYPERLIPIDEMIA, UNSPECIFIED Status: Acute Qualifiers: Hyperlipidemia type: moderate mixed hyperlipidemia not requiring statin ther apy Qualified Code(s): E78.2 - Mixed hyperlipidemia (4) GERD (gastroesophageal reflux disease) SNOMED Code(s): 964129020 ICD Code: K21.9 - GASTRO-ESOPHAGEAL REFLUX DISEASE WITHOUT ESOPHAGITIS Status: Chronic - Patient Summary/Data Consults: Consultations 11/04/20 10:10 OT Evaluation and Treatment [CONS] Routine PT Evaluation and Treatment [CONS] Routine 11/05/20 11:32 PT Evaluation and Treatment [CONS] Routine Hospital Course: Admission diagnoses Right upper extremity weakness Right lower extremity weakness Discharge diagnosis Acute ischemic CVA HLD Other PMH GERD Ayush was admitted secondary to right upper extremity weakness along with right lower extremity weakness. In the ER head CT and CTAs obtained which showed no definite source of possible symptoms. Brain MRI ordered the following day. This revealed several small foci of diffusion restriction flared/T2 hyperintensity within the superior portion of the left cerebral hemisphere. These are noted within the posterior left frontal and anterior parietal lobes including the superior frontal gyrus and post central gyrus findings are consistent with small recent ischemic infarcts. No associated mass or hemorrhage. Small chronic cortical infarct in the left occipital lobe noted no focal lesion in the brainstem or cerebellum. Patient was then diagnosed with acute CVA. He was allowed permissive hypertension but blood pressures remained stable. Patient monitored on telemetry for any arrhythmias none noted during admission. He was placed on Zio patch on discharge. Echo did return with no significant findings mild grade 1 LV diastolic filling noted. Patient was continued on aspirin along with high-dose atorvastatin. LDL 112 triglycerides 133 total cholesterol 199 HDL 60. TSH 3.35. A1c was 5.8. Patient was evaluated by physical therapy and passed. There was no need for further skilled care but this was offered to him as he continued to have some gait instability and intermittent lightheadedness and dizziness. He was evaluated again by physical therapy for any vestibular concerns and none were found. Patient improved as he was up ambulating more. Blood pressure has remained stable heart rate stable. Patient was given outpatient physical therapy prescription in case he and his family felt he wanted further evaluation and management by PT. Patient will be discharged home today with follow-up with PCP in [address] Goins, neurology when available. All questions and concerns addressed with family. Patient to return to the ER or clinic if concerns should arise sooner. - Patient Instructions Diet: Heart Healthy Diet Activity: As Tolerated, No Strenuous Activities Showering/Bathing: May Shower Notify Provider of: Fever, Increased Pain, Swelling and Redness, Drainage, Nausea and/or Vomiting Other/Special Instructions: Monitor blood pressure daily, keep log for Dr Griffin. Zio patch on for 14 days results to be sent to Dr Griffin and Dr Goins when available. - Discharge Plan *PRESCRIPTION DRUG MONITORING PROGRAM REVIEWED*: Not Applicable *COPY OF PRESCRIPTION DRUG MONITORING REPORT IN PATIENT MARIA C: Not Applicable Prescriptions/Med Rec: Aspirin 81 mg PO DAILY #60 tab.chew atorvaSTATin [Lipitor] 80 mg PO BEDTIME #90 tablet Home Medications: Home Meds Aspirin 81 mg PO DAILY #60 tab.chew 11/05/20 [Rx] Omeprazole 20 mg PO DAILY 11/05/20 [History] atorvaSTATin [Lipitor] 80 mg PO BEDTIME #90 tablet 11/05/20 [Rx] Oxygen Therapy Mode: Room Air Patient Handouts: Hospital Discharge After a Stroke, Warning Signs of a Stroke, Preventing Hypertension, Dyslipidemia, Atorvastatin tablets, Ischemic Stroke, Aspirin, ASA oral tablets Referrals: Marianna Goins MD [Physician] - 01/13/21 9:30 am Steven Griffin MD [Primary Care Provider] - 11/13/20 3:30 pm - Discharge Summary/Plan Comment DC Time >30 min.: No - Patient Data Vitals - Most Recent: Last Vital Signs Temp 97.5 F 11/06/20 07:32 Pulse 76 11/06/20 07:32 Resp 16 11/06/20 07:32 BP 127/83 11/06/20 07:32 Pulse Ox 96 11/06/20 07:32 Weight - Most Recent: 79.832 kg I&O - Last 24 hours: Intake & Output 11/05/20 11/06/20 11/06/20 22:59 06:59 14:59 Intake Total 720 500 Output Total 400 700 Balance 320 -200 Lab Results - Last 24 hrs: Laboratory Results - last 24 hr 11/05/20 Range/Units 11:35 POC Glucose 138 H (70-99) mg/dL Med Orders - Current: Current Medications Acetaminophen (Acetaminophen 325 Mg Tab) 650 mg PO Q4H PRN PRN Reason: Pain (Mild 1-3)/fever Albuterol/Ipratropium (Albuterol/Ipratropium 3.0-0.5 Mg/3 Ml Neb Soln) 3 ml NEB Q4HRRT PRN PRN Reason: Shortness Of Breath/wheezing Aspirin (Aspirin 81 Mg Tab.Chew) 81 mg PO DAILY [facility] Last Admin: 11/06/20 08:14 Dose: 81 mg Documented by: Atorvastatin Calcium (Atorvastatin 40 Mg Tab) 80 mg PO BEDTIME [facility] Last Admin: 11/05/20 20:14 Dose: 80 mg Documented by: Ondansetron HCl (Ondansetron 4 Mg/2 Ml Sdv) 4 mg IVPUSH Q4H PRN PRN Reason: Nausea/Vomiting Sodium Chloride (Sodium Chloride 0.9% 2.5 Ml Syringe) 2.5 ml FLUSH ASDIRECTED PRN PRN Reason: Keep Vein Open Discontinued Medications Atorvastatin Calcium (Atorvastatin 40 Mg Tab) 40 mg PO BEDTIME [facility] Last Admin: 11/04/20 00:39 Dose: 40 mg Documented by: Gadobenate Dimeglumine (Gadobenate Dimeglumine 529 Mg/Ml 20 Ml Sdv) 20 ml IVPUSH ONETIME STA Stop: 11/04/20 07:42 Last Admin: 11/04/20 07:43 Dose: 15 ml Documented by: Lactated Ringer's (Ringers, Lactated) 1,000 mls @ 125 mls/hr IV ASDIRECTED [facility] Last Admin: 11/04/20 08:47 Dose: 125 mls/hr Documented by: Iopamidol (Iopamidol 755 Mg/Ml 500 Ml Multipack Bottle) 100 ml IVPUSH ONETIME STA Stop: 11/03/20 21:23 Last Admin: 11/03/20 21:36 Dose: 100 ml Documented by: Sodium Chloride (Sodium Chloride 0.9% 10 Ml Syringe) 10 ml FLUSH ASDIRECTED PRN PRN Reason: Keep Vein Open Sodium Chloride (Sodium Chloride 0.9% 2.5 Ml Syringe) 2.5 ml FLUSH ASDIRECTED PRN PRN Reason: Keep Vein Open Sodium Chloride (Sodium Chloride 0.9% 10 Ml Sdv) 10 ml IV ASDIRECTED PRN PRN Reason: IV Use
== END 2020-11-06 11:55 | disposition home or self-care (01) ==
LOC: MW.ED 21:12 → MW.MS 22:54
PROVIDERS: ADMIT Student in an Organized Health Care Education/Training Program; ATTEND Student in an Organized Health Care Education/Training Program
DX: I63.9 Cerebral infarction, unspecified (principal); I10 Essential (primary) hypertension; E78.5 Hyperlipidemia, unspecified; K21.9 Gastro-esophageal reflux disease without esophagitis; Z20.822 Contact with and (suspected) exposure to COVID-19; Z79.82 Long term (current) use of aspirin; Z79.899 Other long term (current) drug therapy
CPT/HCPCS: 36415; 70450; 70450-26; 70496; 70496-26; 70498; 70498-26; 70553; 70553-26; 71045; 71045-26; 80048; 80053; 80061; 81001; 82947; 83036; 84443; 84484; 85025; 85610; 85730; 93246; 93306; 97161-GP; 97165-GO; 99285-25; A9270-GY; A9577; G0378; J7120; Q9967; U0002

== ENCOUNTER 2021-03-09 13:10 | Inpatient (IN) | payer MEDICARE, OTHER ==
--- NOTE | 2021-03-09 13:23 | EDM.PDOC ---
ED HPI GENERAL MEDICAL PROBLEM - General Chief Complaint: Neurological Problem Stated Complaint: STROKE Time Seen by Provider: 03/09/21 13:16 Source of Information: Reports: Patient History Limitations: Reports: No Limitations - History of Present Illness INITIAL COMMENTS - FREE TEXT/NARRATIVE: Patient is a 75-year-old male brought in today for possible stroke. Patient symptoms started about an hour ago around 1210 he states that he cannot really control his right side he feels that he does not have full control over it still lifted up and move it. He has no vision changes voice changes or sensory deficits is all on the right side. Denies any hit have any alcohol or drugs fever chills or other complaints. - Related Data Allergies Allergy/AdvReac Type Severity Reaction Status Date / Time No Known Allergies Allergy Verified 03/09/21 14:04 Home Meds: Home Meds Aspirin 81 mg PO DAILY #60 tab.chew 11/05/20 [Rx] Omeprazole 20 mg PO DAILY 11/05/20 [History] atorvaSTATin [Lipitor] 80 mg PO BEDTIME #90 tablet 11/05/20 [Rx] Past Medical History Cardiovascular History: Reports: None. Denies: Afib, Blood Clots/VTE/DVT, CAD, High Cholesterol, Hypertension Respiratory History: Reports: None. Denies: COPD, SOB Gastrointestinal History: Reports: GERD Musculoskeletal History: Reports: None Neurological History: Reports: None. Denies: CVA, Migraines, Seizure, TIA Psychiatric History: Reports: None - Infectious Disease History Infectious Disease History: Reports: Chicken Pox, Measles - Past Surgical History GI Surgical History: Reports: Other (See Below) Other GI Surgeries/Procedures: 8 inches of colon removed due to fistula 2019 Male Surgical History: Reports: Prostatectomy, Other (See Below) Other Male Surgeries/Procedures: "hole in the bladder" rapaired in 2019 Social & Family History - Family History Family Medical History: No Pertinent Family History - Caffeine Use Caffeine Use: Reports: Coffee - Living Situation & Occupation Living situation: Reports: Occupation: Retired ED ROS GENERAL - Review of Systems Review Of Systems: See Below Constitutional: Reports: No Symptoms HEENT: Reports: No Symptoms Respiratory: Reports: No Symptoms Cardiovascular: Reports: No Symptoms Endocrine: Reports: No Symptoms GI/Abdominal: Reports: No Symptoms : Reports: No Symptoms Musculoskeletal: Reports: No Symptoms Skin: Reports: No Symptoms Neurological: Reports: Weakness Psychiatric: Reports: No Symptoms Hematologic/Lymphatic: Reports: No Symptoms Immunologic: Reports: No Symptoms ED EXAM, NEURO - Physical Exam Exam: See Below Exam Limited By: No Limitations General Appearance: Alert, WD/WN, No Apparent Distress Eye Exam: Bilateral Eye: EOMI, PERRL Ears: Normal External Exam Nose: Normal Inspection Throat/Mouth: Normal Inspection Head Exam: Atraumatic, Normocephalic Neck: Normal Inspection Respiratory/Chest: No Respiratory Distress, Lungs Clear, Normal Breath Sounds Cardiovascular: Normal Peripheral Pulses, Regular Rate, Rhythm GI/Abdominal: Normal Bowel Sounds, Soft, Non-Tender Rectal (Males) Exam: Normal Exam Neurological: Alert, Normal Mood/Affect, Normal Dorsiflexion, CN II-XII Intact, Normal Plantar Flexion, Oriented x 3, Abnormal Motor (Right arm and leg decreased strength right arm and leg as well) #1 Interpretation EKG Date: 03/09/21 Time: 14:08 Rhythm: NSR Rate (Beats/Min): 78 ST-T: Normal Course - Vital Signs Last Recorded V/S: Last Vital Signs Temp 96.2 F L 03/09/21 12:58 Pulse 77 03/09/21 12:58 Resp 18 03/09/21 12:58 BP 124/85 03/09/21 12:58 Pulse Ox 97 03/09/21 12:58 - Orders/Labs/Meds Orders: Active Orders 24 hr Category Date Time Status EKG 12 Lead [EKG Documentation Completion] [RC] STAT Care 03/09/21 13:18 Active CORONAVIRUS COVID-19 CHRISTOPHE [MOLEC] Stat Lab 03/09/21 14:19 Ordered DRUG SCREEN, URINE [URCHEM] Stat Lab 03/09/21 13:17 Ordered Labs: Laboratory Tests 03/09/21 03/09/21 03/09/21 Range/Units 13:14 13:14 13:14 WBC 5.84 (4.0-11.0) K/uL RBC 4.23 L (4.50-5.90) M/uL Hgb 13.5 (13.0-17.0) g/dL Hct 40.2 (38.0-50.0) % MCV 95.0 (80.0-98.0) fL MCH 31.9 (27.0-32.0) pg MCHC 33.6 (31.0-37.0) g/dL RDW Std Deviation 53.7 (28.0-62.0) fl RDW Coeff of Ashley 16 H (11.0-15.0) % Plt Count 186 (150-400) K/uL MPV 11.10 (7.40-12.00) fL Neut % (Auto) 63.8 (48.0-80.0) % Lymph % (Auto) 26.4 (16.0-40.0) % Harney % (Auto) 7.9 (0.0-15.0) % Eos % (Auto) 1.7 (0.0-7.0) % Baso % (Auto) 0.2 (0.0-1.5) % Neut # (Auto) 3.7 (1.4-5.7) K/uL Lymph # (Auto) 1.5 (0.6-2.4) K/uL Harney # (Auto) 0.5 (0.0-0.8) K/uL Eos # (Auto) 0.1 (0.0-0.7) K/uL Baso # (Auto) 0.0 (0.0-0.1) K/uL Nucleated RBC % 0.0 /100WBC Nucleated RBCs # 0 K/uL INR 1.01 APTT 22.9 (18.6-31.3) SEC Sodium 137 (136-148) mmol/L Potassium 4.4 (3.5-5.1) mmol/L Chloride 101 (98-107) mmol/L Carbon Dioxide 28.2 (21.0-32.0) mmol/L BUN 23 H (7.0-18.0) mg/dL Creatinine 1.3 (0.8-1.3) mg/dL Est Cr Clr Drug Dosing TNP Estimated GFR (MDRD) 53.8 ml/min Glucose 147 H (74-106) mg/dL Calcium 8.3 L (8.5-10.1) mg/dL Phosphorus 3.1 (2.6-4.7) mg/dL Total Bilirubin 0.6 (0.2-1.0) mg/dL AST 18 (15-37) IU/L ALT 16 (14-63) IU/L Alkaline Phosphatase 171 H (46-116) U/L Total Protein 7.4 (6.4-8.2) g/dL Albumin 3.0 L (3.4-5.0) g/dL Globulin 4.4 H (2.6-4.0) g/dL Albumin/Globulin Ratio 0.7 L (0.9-1.6) Ethyl Alcohol < 3.0 mg/dL - Re-Assessments/Exams Free Text/Narrative Re-Assessment/Exam: 03/09/21 14:26 Patient NIH stroke scale was only 2 for right arm and right leg drift. Full to the [facility]ist [facility] Hutchison about patient's symptoms and she recommended maybe doing shared decision-making as she does not think the patient should really get TPA due to the severity of symptoms not being a great and also him having a TIA back in October and his symptoms getting better. We spoke to the family his son and at length about the risks of taking TPA and the risk of not taking the TPA after talking stating that the patient could have worsening symptoms and bleeding at the taking the [facility] or symptoms could be improved from a CVA they recommended that they like to wait and see if his symptoms get better on their own. We spoke to the hospitalist Dr. Gandhi and we will admit the patient to the ER and continued work-up. Departure - Departure Time of Disposition: 14:27 Disposition: Admitted As Inpatient 66 Condition: Good Clinical Impression: Stroke Qualifiers: Laterality of affected vessel: left - Discharge Information *PRESCRIPTION DRUG MONITORING PROGRAM REVIEWED*: Not Applicable *COPY OF PRESCRIPTION DRUG MONITORING REPORT IN PATIENT MARIA C: Not Applicable Referrals: Riley Gandhi MD [Primary Care Provider] - Forms: ED Department Discharge Critical Care Note - Critical Care Note Total Time (mins): 45 Comments: Critical Care Procedure Note Authorized and Performed by: Dr. Pruitt Total critical care time: Approximately Due to a high probability of clinically significant, life threatening deterioration, the patient required my highest level of preparedness to intervene emergently and I personally spent this critical care time directly and personally managing the patient. This critical care time included obtaining a history; examining the patient; pulse oximetry; ordering and review of studies; arranging urgent treatment with development of a management plan; evaluation of patient's response to treatment; frequent reassessment; and, discussions with other providers. This critical care time was performed to assess and manage the high probability of imminent, life-threatening deterioration that could result in multi-organ failure. It was exclusive of separately billable procedures and treating other patients and teaching time. Sepsis Event Note (ED) - Focused Exam Vital Signs: Vital Signs Temp Pulse Resp BP Pulse Ox 03/09/21 12:58 96.2 F L 77 18 124/85 97 - My Orders Last 24 Hours: My Active Orders 03/09/21 13:17 DRUG SCREEN, URINE [URCHEM] Stat 03/09/21 13:18 EKG 12 Lead [EKG Documentation Completion] [RC] STAT 03/09/21 14:19 CORONAVIRUS COVID-19 CHRISTOPHE [MOLEC] Stat - Assessment/Plan Last 24 Hours: My Active Orders 03/09/21 13:17 DRUG SCREEN, URINE [URCHEM] Stat 03/09/21 13:18 EKG 12 Lead [EKG Documentation Completion] [RC] STAT 03/09/21 14:19 CORONAVIRUS COVID-19 CHRISTOPHE [MOLEC] Stat Plan: Patient is a 75-year-old male brought in today to rule out possible stroke. Patient has some right-sided weakness upper and lower extremity. His NIH stroke scale is a 2 for more of the arm and leg. We will obtain CT head labs and reassess.
--- NOTE | 2021-03-09 13:46 | CT ---
DATE: 03/09/2021. CLINICAL HISTORY: Right-sided weakness. TECHNIQUE: Standard helical CT image acquisition of the brain was performed. COMPARISON: None available. FINDINGS: There is no intracranial hemorrhage. No extra-axial collection, mass effect, or midline shift. Mild patchy hypoattenuation within the white matter of both hemispheres likely reflects sequela chronic small vessel ischemia. More focal small hypodensity within the left centrum semiovale may reflect a lacunar infarct of uncertain chronicity. Intracranial atherosclerotic calcification. Ventricles are normal in size and morphology for patient age. The calvarium is unremarkable. The orbits are unremarkable. The paranasal sinuses are unremarkable. The mastoid air cells are unremarkable. The soft tissues are unremarkable. IMPRESSION: 1. No CT evidence of acute intracranial hemorrhage. 2. Small hypodensity within the left centrum semiovale may reflect a lacunar infarct of uncertain chronicity. 3. Findings most consistent with sequela of mild chronic small vessel ischemia. Please note that all CT scans at this facility use dose modulation, iterative reconstruction, and/or weight-based dosing when appropriate to reduce radiation dose to as low as reasonably achievable. Dictated by Rubén Ackerman MD @ 03/09/2021 1:45:44 PM (Electronically Signed)
--- NOTE | 2021-03-09 13:51 | CT ---
DATE: 03/09/2021. CLINICAL HISTORY: Right-sided weakness. TECHNIQUE: Standard helical CT image acquisition through the head following the administration of intravenous contrast was performed. Multiplanar reconstructed images performed on a separate workstation. COMPARISON: CTA head dated 11/03/2020. FINDINGS: The petrous, cavernous, and supraclinoid segments of the internal carotid arteries are patent. The anterior and middle cerebral arteries are patent. The anterior communicating artery is visualized and is within normal limits. The intracranial vertebral arteries, basilar trunk, and posterior cerebral arteries are patent. IMPRESSION: No intracranial proximal large vessel occlusion or flow limiting luminal stenosis. Please note that all CT scans at this facility use dose modulation, iterative reconstruction, and/or weight-based dosing when appropriate to reduce radiation dose to as low as reasonably achievable. Dictated by Rubén Ackerman MD @ 03/09/2021 1:50:37 PM (Electronically Signed)
[2021-03-09 13:55] LABS: BLOOD UREA NITROGEN,BUN 23 mg/dL (7.0-18.0); CARBON DIOXIDE,CO2 28.2 mmol/L (21.0-32.0); CHLORIDE,CL 101 mmol/L (98-107); GLUCOSE RANDOM 147 mg/dL (74-106); POTASSIUM,K 4.4 mmol/L (3.5-5.1); SODIUM,NA 137 mmol/L (136-148)
--- NOTE | 2021-03-09 13:57 | CT ---
DATE: 03/09/2021. CLINICAL HISTORY: Right-sided weakness. TECHNIQUE: Standard helical CT image acquisition through the neck was performed after intravenous contrast bolus enhancement. Multiplanar reconstructed images were performed and interpreted. COMPARISON: CTA head and neck dated 11/03/2020. FINDINGS: The origins of the great vessels from the aortic arch are patent. The origins of the right and left vertebral arteries are patent. The common carotid arteries are patent. No significant luminal stenoses of the proximal internal arteries by NASCET criteria. The more distal cervical segments of the internal carotid arteries are patent. The cervical segments of the vertebral arteries are patent. The visualized lung apices are unremarkable. The thyroid gland is unremarkable. There are degenerative changes in the cervical spine. IMPRESSION: Patent cervical arterial vasculature without hemodynamically significant luminal stenosis. Please note that all CT scans at this facility use dose modulation, iterative reconstruction, and/or weight-based dosing when appropriate to reduce radiation dose to as low as reasonably achievable. Dictated by Rubén Ackerman MD @ 03/09/2021 1:55:28 PM (Electronically Signed)
[2021-03-09] MEDS ORDERED: Aspirin 325 MG Tab PO ONE (14:30)
[2021-03-09] MEDS ORDERED: Clopidogrel 75 MG Tab PO ONE (14:32)
[2021-03-09] MEDS ORDERED: Iopamidol 755 MG/ML 500 ML Multipack Bottle IVPUSH ONE (15:29)
--- NOTE | 2021-03-09 21:53 | PCM.HP.2 ---
H&P History of Present Illness - General Date of Service: 03/09/21 Admit Problem/Dx: Admission Diagnosis/Problem Admission Diagnosis/Problem Stroke of unknown etiology - History of Present Illness Initial Comments - Free Text/Narative: 75 yo male with pmh of CVA who presents with right sided weakness. Patient re ports this afternoon developed right sided weakness and numbness similar to his last CVA. He was unable to stand up or raise his arm. CT scan in the ED reported possible small left centrum semiovalle lacunar infarct of uncertain chronicity. ER discussed tPA with patient and family and as he was improving they decided not to use. Once on the medical floor he has improved to the point were he is walking unassisted and only has mild sensation of weakness in the legs and arms. - Related Data Allergies/Adverse Reactions: Allergies Allergy/AdvReac Type Severity Reaction Status Date / Time No Known Allergies Allergy Verified 03/09/21 17:20 Home Medications: Home Meds Aspirin 81 mg PO DAILY #60 tab.chew 11/05/20 [Rx] Omeprazole 20 mg PO DAILY 11/05/20 [History] atorvaSTATin [Lipitor] 80 mg PO BEDTIME #90 tablet 11/05/20 [Rx] Past Medical History HEENT History: Reports: Cataract Cardiovascular History: Reports: None Respiratory History: Reports: None Gastrointestinal History: Reports: GERD Musculoskeletal History: Reports: None Neurological History: Reports: TIA Psychiatric History: Reports: None - Infectious Disease History Infectious Disease History: Reports: Chicken Pox, Measles - Past Surgical History HEENT Surgical History: Reports: Cataract Surgery GI Surgical History: Reports: Other (See Below) Other GI Surgeries/Procedures: 8 inches of colon removed due to fistula 2019 Male Surgical History: Reports: Prostatectomy, Other (See Below) Other Male Surgeries/Procedures: "hole in the bladder" rapaired in 2019 Social & Family History - Family History Family Medical History: No Pertinent Family History - Tobacco Use Tobacco Use Status *Q: Never Tobacco User - Caffeine Use Caffeine Use: Reports: Coffee - Recreational Drug Use Recreational Drug Use: No - Living Situation & Occupation Living situation: Reports: Occupation: Retired H&P Review of Systems - Review of Systems: Review Of Systems: Comprehensive ROS is negative, except as noted in HPI. Exam - Exam Exam: See Below - Vital Signs Vital Signs: Last Vital Signs Temp 36.2 C 03/09/21 16:57 Pulse 84 03/09/21 16:57 Resp 16 03/09/21 16:57 BP 143/84 H 03/09/21 16:57 Pulse Ox 97 03/09/21 16:57 Weight: 81.647 kg - Exam General: Alert, Oriented HEENT: Mucosa Moist & Manuel Garcia Ii Neck: Supple Lungs: Clear to Auscultation Cardiovascular: Regular Rate, Regular Rhythm GI/Abdominal Exam: Normal Bowel Sounds, Soft, Non-Tender Extremities: Non-Tender, No Pedal Edema Skin: Warm, Dry, Intact Neurological: Cranial Nerves Intact, Reflexes Equal Bilateral, Strength Equal Bilateral, Normal Gait, Normal Speech, Normal Tone. No: Focal Deficit - Patient Data Lab Results Last 24 hrs: Laboratory Results - last 24 hr 03/09/21 03/09/21 03/09/21 Range/Units 13:14 13:14 13:14 WBC 5.84 (4.0-11.0) K/uL RBC 4.23 L (4.50-5.90) M/uL Hgb 13.5 (13.0-17.0) g/dL Hct 40.2 (38.0-50.0) % MCV 95.0 (80.0-98.0) fL MCH 31.9 (27.0-32.0) pg MCHC 33.6 (31.0-37.0) g/dL RDW Std Deviation 53.7 (28.0-62.0) fl RDW Coeff of Ashley 16 H (11.0-15.0) % Plt Count 186 (150-400) K/uL MPV 11.10 (7.40-12.00) fL Neut % (Auto) 63.8 (48.0-80.0) % Lymph % (Auto) 26.4 (16.0-40.0) % Collin % (Auto) 7.9 (0.0-15.0) % Eos % (Auto) 1.7 (0.0-7.0) % Baso % (Auto) 0.2 (0.0-1.5) % Neut # (Auto) 3.7 (1.4-5.7) K/uL Lymph # (Auto) 1.5 (0.6-2.4) K/uL Collin # (Auto) 0.5 (0.0-0.8) K/uL Eos # (Auto) 0.1 (0.0-0.7) K/uL Baso # (Auto) 0.0 (0.0-0.1) K/uL Nucleated RBC % 0.0 /100WBC Nucleated RBCs # 0 K/uL INR 1.01 APTT 22.9 (18.6-31.3) SEC Sodium 137 (136-148) mmol/L Potassium 4.4 (3.5-5.1) mmol/L Chloride 101 (98-107) mmol/L Carbon Dioxide 28.2 (21.0-32.0) mmol/L BUN 23 H (7.0-18.0) mg/dL Creatinine 1.3 (0.8-1.3) mg/dL Est Cr Clr Drug Dosing TNP Estimated GFR (MDRD) 53.8 ml/min Glucose 147 H (74-106) mg/dL Calcium 8.3 L (8.5-10.1) mg/dL Phosphorus 3.1 (2.6-4.7) mg/dL Total Bilirubin 0.6 (0.2-1.0) mg/dL AST 18 (15-37) IU/L ALT 16 (14-63) IU/L Alkaline Phosphatase 171 H (46-116) U/L Total Protein 7.4 (6.4-8.2) g/dL Albumin 3.0 L (3.4-5.0) g/dL Globulin 4.4 H (2.6-4.0) g/dL Albumin/Globulin Ratio 0.7 L (0.9-1.6) Triglycerides (0-200) mg/dL Cholesterol (50-200) mg/dL LDL Cholesterol, Calc (60-180) mg/dL VLDL Cholesterol (5-55) mg/dL HDL Cholesterol (40-60) mg/dL Cholesterol/HDL Ratio (3.3-6.0) Urine Opiates Screen (NEGATIVE) Ur Oxycodone Screen (NEGATIVE) Urine Methadone Screen (NEGATIVE) Ur Barbiturates Screen (NEGATIVE) Ur Phencyclidine Scrn (NEGATIVE) Ur Amphetamine Screen (NEGATIVE) U Methamphetamines Scrn (NEGATIVE) U Benzodiazepines Scrn (NEGATIVE) U Cocaine Metab Screen (NEGATIVE) U Marijuana (THC) Screen (NEGATIVE) Ethyl Alcohol < 3.0 mg/dL SARS-CoV-2 RNA (CHRISTOPHE) (NEGATIVE) 03/09/21 03/09/21 03/09/21 Range/Units 14:18 14:32 14:38 WBC (4.0-11.0) K/uL RBC (4.50-5.90) M/uL Hgb (13.0-17.0) g/dL Hct (38.0-50.0) % MCV (80.0-98.0) fL MCH (27.0-32.0) pg MCHC (31.0-37.0) g/dL RDW Std Deviation (28.0-62.0) fl RDW Coeff of Ashley (11.0-15.0) % Plt Count (150-400) K/uL MPV (7.40-12.00) fL Neut % (Auto) (48.0-80.0) % Lymph % (Auto) (16.0-40.0) % Collin % (Auto) (0.0-15.0) % Eos % (Auto) (0.0-7.0) % Baso % (Auto) (0.0-1.5) % Neut # (Auto) (1.4-5.7) K/uL Lymph # (Auto) (0.6-2.4) K/uL Collin # (Auto) (0.0-0.8) K/uL Eos # (Auto) (0.0-0.7) K/uL Baso # (Auto) (0.0-0.1) K/uL Nucleated RBC % /100WBC Nucleated RBCs # K/uL INR APTT (18.6-31.3) SEC Sodium (136-148) mmol/L Potassium (3.5-5.1) mmol/L Chloride (98-107) mmol/L Carbon Dioxide (21.0-32.0) mmol/L BUN (7.0-18.0) mg/dL Creatinine (0.8-1.3) mg/dL Est Cr Clr Drug Dosing Estimated GFR (MDRD) ml/min Glucose (74-106) mg/dL Calcium (8.5-10.1) mg/dL Phosphorus (2.6-4.7) mg/dL Total Bilirubin (0.2-1.0) mg/dL AST (15-37) IU/L ALT (14-63) IU/L Alkaline Phosphatase (46-116) U/L Total Protein (6.4-8.2) g/dL Albumin (3.4-5.0) g/dL Globulin (2.6-4.0) g/dL Albumin/Globulin Ratio (0.9-1.6) Triglycerides 88 (0-200) mg/dL Cholesterol 197 (50-200) mg/dL LDL Cholesterol, Calc 116 (60-180) mg/dL VLDL Cholesterol 17 (5-55) mg/dL HDL Cholesterol 63 H (40-60) mg/dL Cholesterol/HDL Ratio 3.1 L (3.3-6.0) Urine Opiates Screen NEGATIVE (NEGATIVE) Ur Oxycodone Screen NEGATIVE (NEGATIVE) Urine Methadone Screen NEGATIVE (NEGATIVE) Ur Barbiturates Screen NEGATIVE (NEGATIVE) Ur Phencyclidine Scrn NEGATIVE (NEGATIVE) Ur Amphetamine Screen NEGATIVE (NEGATIVE) U Methamphetamines Scrn NEGATIVE (NEGATIVE) U Benzodiazepines Scrn NEGATIVE (NEGATIVE) U Cocaine Metab Screen NEGATIVE (NEGATIVE) U Marijuana (THC) Screen NEGATIVE (NEGATIVE) Ethyl Alcohol mg/dL SARS-CoV-2 RNA (CHRISTOPHE) NEGATIVE (NEGATIVE) Result Diagrams: 03/09/21 13:14 03/09/21 13:14 Sepsis Event Note - Evaluation Sepsis Screening Result: No Definite Risk - Focused Exam Vital Signs: Vital Signs Temp Pulse Resp BP Pulse Ox 03/09/21 16:57 36.2 C 84 16 143/84 H 97 03/09/21 16:51 83 16 114/80 91 L 03/09/21 14:41 80 127/83 90 L 03/09/21 14:11 82 16 124/77 90 L 03/09/21 12:58 35.7 C L 77 18 124/85 97 Problem List Initiated/Reviewed/Updated: Yes Orders Last 24hrs: Active Orders 24 hr Category Date Time Status Patient Status [ADT] Routine ADT 03/09/21 14:33 Active Telemetry Monitoring [Cardiac Monitoring] [RC] . Care 03/09/21 17:33 Active DIRECTED Telemetry Monitoring [Cardiac Monitoring] [RC] . Care 03/09/21 17:37 Active DIRECTED Regular Diet [DIET] Diet 03/09/21 Dinner Active Aspirin Med 03/10/21 09:00 Ordered 81 mg PO DAILY Omeprazole Med 03/10/21 09:00 Ordered 20 mg PO DAILY atorvaSTATin [Lipitor] Med 03/09/21 21:00 Ordered 80 mg PO BEDTIME Medication Orders Aspirin (Aspirin 81 Mg Tab.Chew) 81 mg PO DAILY CULLEN Atorvastatin Calcium (Atorvastatin 40 Mg Tab) 80 mg PO BEDTIME CULLEN Omeprazole (Omeprazole 20 Mg Cap.Cr) 20 mg PO DAILY CULLEN Assessment/Plan Comment:: 75 yo male admitted for CVA/TIA. We will monitor on telemetry overnight and order MRI for tomorrow. We will continue ASA and statin.
[2021-03-09] MEDS: atorvaSTATin 40 MG Tab PO SCH (22:21)
[2021-03-10 06:58] LABS: CARBON DIOXIDE,CO2 25.3 mmol/L (21.0-32.0); POTASSIUM,K 4.3 mmol/L (3.5-5.1)
[2021-03-10 07:05] LABS: HEMOGLOBIN A1C 5.8 %
[2021-03-10] MEDS ORDERED: Gadobenate Dimeglumine 529 MG/ML 20 ML SDV IVPUSH STA (07:34)
--- NOTE | 2021-03-10 08:38 | MR ---
INDICATION: Right-sided weakness. TECHNIQUE: Brain MRI with contrast. The following sequences were obtained: Sagittal T1 weighted sequence. DWI and ADC mapping sequences. Axial FLAIR and MIKY T2 weighted sequences. SWI sequence. Axial and coronal T1 weighted post-contrast sequences. 15 cc of Gadavist gadolinium based contrast agent was used. COMPARISON: Brain MRI from 11/04/2020. FINDINGS: Small focus of diffusion restriction within the left frontal centrum semiovale, series 2 of 4 slice 176. Associated ADC hypointensity. It is most compatible with a recent, likely late acute to subacute infarct. Typical evolution of the now early small chronic infarcts within the left posterior frontal/parietal regions, seen as acute on prior MRI. Redemonstration of the chronic left occipital TOOL MACHINIST distribution infarct. No other recent infarctions elsewhere within the brain. No evidence of acute or chronic intracranial blood products. No mass or pathologic intracranial enhancement. Multiple punctate foci of FLAIR hyperintensity within the supratentorial white matter, typical for chronic microvascular ischemic changes. No hydrocephalus or extra-axial collections. The pituitary gland, parasellar structures and optic chiasm are normal. Posterior fossa is normal. All the major intracranial vascular structures demonstrate normal flow-related signal. The orbital contents are normal. No calvarial or skull base marrow signal abnormality. No obstructive sinus disease. No extracranial soft tissue findings. IMPRESSION: 1. New small, likely late acute to early subacute infarct within the left frontal centrum semiovale. No recent infarction elsewhere within the brain. 2. Typical evolution of the now tiny chronic infarcts within the left posterior superior cerebral hemisphere. Stable chronic left TOOL MACHINIST distribution infarct. 3. No evidence of acute intracranial hemorrhage. Dictated by Blair Sahu MD @ 03/10/2021 8:36:57 AM (Electronically Signed)
[2021-03-10] MEDS: Omeprazole 20 MG Cap.CR PO SCH (08:57)
[2021-03-10] MEDS ORDERED: Aspirin 81 MG Tab.Chew PO SCH (09:00)
--- NOTE | 2021-03-10 11:18 | PCM.PN ---
- General Info Date of Service: 03/10/21 Subjective Update: The patient is a 75-year-old male, on day 2 of service, who has a significant past medical history of cerebrovascular accident, who was admitted to the medical floor due to right-sided weakness and numbness and was found to have new infarcts on the left side on MRI of the brain. For his previous CVA, the patient was placed on aspirin and atorvastatin which he has been using since and has been compliant. Upon interview with him and his daughter at bedside, he states that he does not follow a nutritious diet, and rarely gets exercise. It was explained to him that with this new infarct, he would have to be more strict on his diet and he would have to control his blood pressure and obtain exercise. Dr. Goins, the hospital neurologist was contacted with respect to medication advice in this patient and stated that Plavix and/or antiplatelet therapy for 2 to 3 weeks after a new infarct showed promising signs. As a result we will stop the patient's aspirin and start him on Plavix for the next 3 weeks. Upon further interview with the patient, he explains that his symptoms have almost completely subsided and he no longer feels weak or numb on the right side. He is able to ambulate and get out of bed without any issues. He has no other health concerns at this time. - Review of Systems General: Reports: Weakness. Denies: Fever, Fatigue HEENT: Denies: Headaches, Sore Throat Pulmonary: Denies: Shortness of Breath, Cough Cardiovascular: Denies: Chest Pain, Palpitations Gastrointestinal: Denies: Abdominal Pain Genitourinary: Denies: Dysuria Neurological: Reports: Weakness. Denies: Confusion, Dizziness, Headache, Numbness, Paresthesia, Difficulty Walking - Patient Data Vitals - Most Recent: Last Vital Signs Temp 97.0 F 03/10/21 07:00 Pulse 89 03/10/21 07:00 Resp 16 03/10/21 07:00 BP 136/54 L 03/10/21 07:00 Pulse Ox 96 03/10/21 07:00 Weight - Most Recent: 180 lb 0.012 oz I&O - Last 24 Hours: Intake & Output 03/09/21 03/10/21 03/10/21 22:59 06:59 14:59 Intake Total 800 Balance 800 Lab Results Last 24 Hours: Laboratory Results - last 24 hr 03/09/21 03/09/21 03/09/21 Range/Units 13:14 13:14 13:14 WBC 5.84 (4.0-11.0) K/uL RBC 4.23 L (4.50-5.90) M/uL Hgb 13.5 (13.0-17.0) g/dL Hct 40.2 (38.0-50.0) % MCV 95.0 (80.0-98.0) fL MCH 31.9 (27.0-32.0) pg MCHC 33.6 (31.0-37.0) g/dL RDW Std Deviation 53.7 (28.0-62.0) fl RDW Coeff of Ashley 16 H (11.0-15.0) % Plt Count 186 (150-400) K/uL MPV 11.10 (7.40-12.00) fL Neut % (Auto) 63.8 (48.0-80.0) % Lymph % (Auto) 26.4 (16.0-40.0) % Lewis % (Auto) 7.9 (0.0-15.0) % Eos % (Auto) 1.7 (0.0-7.0) % Baso % (Auto) 0.2 (0.0-1.5) % Neut # (Auto) 3.7 (1.4-5.7) K/uL Lymph # (Auto) 1.5 (0.6-2.4) K/uL Lewis # (Auto) 0.5 (0.0-0.8) K/uL Eos # (Auto) 0.1 (0.0-0.7) K/uL Baso # (Auto) 0.0 (0.0-0.1) K/uL Nucleated RBC % 0.0 /100WBC Nucleated RBCs # 0 K/uL INR 1.01 APTT 22.9 (18.6-31.3) SEC Sodium 137 (136-148) mmol/L Potassium 4.4 (3.5-5.1) mmol/L Chloride 101 (98-107) mmol/L Carbon Dioxide 28.2 (21.0-32.0) mmol/L BUN 23 H (7.0-18.0) mg/dL Creatinine 1.3 (0.8-1.3) mg/dL Est Cr Clr Drug Dosing TNP Estimated GFR (MDRD) 53.8 ml/min Glucose 147 H (74-106) mg/dL Hemoglobin A1c (4.5 - 6.2) % Calcium 8.3 L (8.5-10.1) mg/dL Phosphorus 3.1 (2.6-4.7) mg/dL Total Bilirubin 0.6 (0.2-1.0) mg/dL AST 18 (15-37) IU/L ALT 16 (14-63) IU/L Alkaline Phosphatase 171 H (46-116) U/L Total Protein 7.4 (6.4-8.2) g/dL Albumin 3.0 L (3.4-5.0) g/dL Globulin 4.4 H (2.6-4.0) g/dL Albumin/Globulin Ratio 0.7 L (0.9-1.6) Triglycerides (0-200) mg/dL Cholesterol (50-200) mg/dL LDL Cholesterol, Calc (60-180) mg/dL VLDL Cholesterol (5-55) mg/dL HDL Cholesterol (40-60) mg/dL Cholesterol/HDL Ratio (3.3-6.0) Urine Opiates Screen (NEGATIVE) Ur Oxycodone Screen (NEGATIVE) Urine Methadone Screen (NEGATIVE) Ur Barbiturates Screen (NEGATIVE) Ur Phencyclidine Scrn (NEGATIVE) Ur Amphetamine Screen (NEGATIVE) U Methamphetamines Scrn (NEGATIVE) U Benzodiazepines Scrn (NEGATIVE) U Cocaine Metab Screen (NEGATIVE) U Marijuana (THC) Screen (NEGATIVE) Ethyl Alcohol < 3.0 mg/dL SARS-CoV-2 RNA (CHRISTOPHE) (NEGATIVE) 03/09/21 03/09/21 03/09/21 Range/Units 14:18 14:32 14:38 WBC (4.0-11.0) K/uL RBC (4.50-5.90) M/uL Hgb (13.0-17.0) g/dL Hct (38.0-50.0) % MCV (80.0-98.0) fL MCH (27.0-32.0) pg MCHC (31.0-37.0) g/dL RDW Std Deviation (28.0-62.0) fl RDW Coeff of Ashley (11.0-15.0) % Plt Count (150-400) K/uL MPV (7.40-12.00) fL Neut % (Auto) (48.0-80.0) % Lymph % (Auto) (16.0-40.0) % Lewis % (Auto) (0.0-15.0) % Eos % (Auto) (0.0-7.0) % Baso % (Auto) (0.0-1.5) % Neut # (Auto) (1.4-5.7) K/uL Lymph # (Auto) (0.6-2.4) K/uL Lewis # (Auto) (0.0-0.8) K/uL Eos # (Auto) (0.0-0.7) K/uL Baso # (Auto) (0.0-0.1) K/uL Nucleated RBC % /100WBC Nucleated RBCs # K/uL INR APTT (18.6-31.3) SEC Sodium (136-148) mmol/L Potassium (3.5-5.1) mmol/L Chloride (98-107) mmol/L Carbon Dioxide (21.0-32.0) mmol/L BUN (7.0-18.0) mg/dL Creatinine (0.8-1.3) mg/dL Est Cr Clr Drug Dosing Estimated GFR (MDRD) ml/min Glucose (74-106) mg/dL Hemoglobin A1c (4.5 - 6.2) % Calcium (8.5-10.1) mg/dL Phosphorus (2.6-4.7) mg/dL Total Bilirubin (0.2-1.0) mg/dL AST (15-37) IU/L ALT (14-63) IU/L Alkaline Phosphatase (46-116) U/L Total Protein (6.4-8.2) g/dL Albumin (3.4-5.0) g/dL Globulin (2.6-4.0) g/dL Albumin/Globulin Ratio (0.9-1.6) Triglycerides 88 (0-200) mg/dL Cholesterol 197 (50-200) mg/dL LDL Cholesterol, Calc 116 (60-180) mg/dL VLDL Cholesterol 17 (5-55) mg/dL HDL Cholesterol 63 H (40-60) mg/dL Cholesterol/HDL Ratio 3.1 L (3.3-6.0) Urine Opiates Screen NEGATIVE (NEGATIVE) Ur Oxycodone Screen NEGATIVE (NEGATIVE) Urine Methadone Screen NEGATIVE (NEGATIVE) Ur Barbiturates Screen NEGATIVE (NEGATIVE) Ur Phencyclidine Scrn NEGATIVE (NEGATIVE) Ur Amphetamine Screen NEGATIVE (NEGATIVE) U Methamphetamines Scrn NEGATIVE (NEGATIVE) U Benzodiazepines Scrn NEGATIVE (NEGATIVE) U Cocaine Metab Screen NEGATIVE (NEGATIVE) U Marijuana (THC) Screen NEGATIVE (NEGATIVE) Ethyl Alcohol mg/dL SARS-CoV-2 RNA (CHRISTOPHE) NEGATIVE (NEGATIVE) 03/10/21 03/10/21 03/10/21 Range/Units 05:35 05:35 05:35 WBC 7.26 (4.0-11.0) K/uL RBC 4.02 L (4.50-5.90) M/uL Hgb 12.6 L (13.0-17.0) g/dL Hct 37.7 L (38.0-50.0) % MCV 93.8 (80.0-98.0) fL MCH 31.3 (27.0-32.0) pg MCHC 33.4 (31.0-37.0) g/dL RDW Std Deviation 53.7 (28.0-62.0) fl RDW Coeff of Ashley 16 H (11.0-15.0) % Plt Count 203 (150-400) K/uL MPV 11.50 (7.40-12.00) fL Neut % (Auto) 70.6 (48.0-80.0) % Lymph % (Auto) 18.0 (16.0-40.0) % Lewis % (Auto) 9.6 (0.0-15.0) % Eos % (Auto) 1.5 (0.0-7.0) % Baso % (Auto) 0.3 (0.0-1.5) % Neut # (Auto) 5.1 (1.4-5.7) K/uL Lymph # (Auto) 1.3 (0.6-2.4) K/uL Lewis # (Auto) 0.7 (0.0-0.8) K/uL Eos # (Auto) 0.1 (0.0-0.7) K/uL Baso # (Auto) 0.0 (0.0-0.1) K/uL Nucleated RBC % 0.0 /100WBC Nucleated RBCs # 0 K/uL INR APTT (18.6-31.3) SEC Sodium 138 (136-148) mmol/L Potassium 4.3 (3.5-5.1) mmol/L Chloride 104 (98-107) mmol/L Carbon Dioxide 25.3 (21.0-32.0) mmol/L BUN 21 H (7.0-18.0) mg/dL Creatinine 1.4 H (0.8-1.3) mg/dL Est Cr Clr Drug Dosing 50.04 Estimated GFR (MDRD) 49.4 ml/min Glucose 115 H (74-106) mg/dL Hemoglobin A1c 5.8 (4.5 - 6.2) % Calcium 7.9 L (8.5-10.1) mg/dL Phosphorus (2.6-4.7) mg/dL Total Bilirubin 0.6 (0.2-1.0) mg/dL AST 13 L (15-37) IU/L ALT 14 (14-63) IU/L Alkaline Phosphatase 154 H (46-116) U/L Total Protein 6.3 L (6.4-8.2) g/dL Albumin 2.7 L (3.4-5.0) g/dL Globulin 3.6 (2.6-4.0) g/dL Albumin/Globulin Ratio 0.8 L (0.9-1.6) Triglycerides (0-200) mg/dL Cholesterol (50-200) mg/dL LDL Cholesterol, Calc (60-180) mg/dL VLDL Cholesterol (5-55) mg/dL HDL Cholesterol (40-60) mg/dL Cholesterol/HDL Ratio (3.3-6.0) Urine Opiates Screen (NEGATIVE) Ur Oxycodone Screen (NEGATIVE) Urine Methadone Screen (NEGATIVE) Ur Barbiturates Screen (NEGATIVE) Ur Phencyclidine Scrn (NEGATIVE) Ur Amphetamine Screen (NEGATIVE) U Methamphetamines Scrn (NEGATIVE) U Benzodiazepines Scrn (NEGATIVE) U Cocaine Metab Screen (NEGATIVE) U Marijuana (THC) Screen (NEGATIVE) Ethyl Alcohol mg/dL SARS-CoV-2 RNA (CHRISTOPHE) (NEGATIVE) Med Orders - Current: Current Medications Atorvastatin Calcium (Atorvastatin 40 Mg Tab) 80 mg PO BEDTIME CULLEN Last Admin: 03/09/21 22:21 Dose: 80 mg Documented by: Clopidogrel Bisulfate (Clopidogrel 75 Mg Tab) 75 mg PO DAILY [facility] Omeprazole (Omeprazole 20 Mg Cap.Cr) 20 mg PO DAILY [facility] Last Admin: 03/10/21 08:57 Dose: 20 mg Documented by: Discontinued Medications Aspirin (Aspirin 325 Mg Tab) 325 mg PO ONETIME ONE Stop: 03/09/21 14:31 Last Admin: 03/09/21 14:40 Dose: 325 mg Documented by: Aspirin (Aspirin 81 Mg Tab.Chew) 81 mg PO DAILY [facility] Last Admin: 03/10/21 08:57 Dose: 81 mg Documented by: Clopidogrel Bisulfate (Clopidogrel 75 Mg Tab) 300 mg PO ONETIME ONE Stop: 03/09/21 14:33 Last Admin: 03/09/21 14:40 Dose: 300 mg Documented by: Gadobenate Dimeglumine (Gadobenate Dimeglumine 529 Mg/Ml 20 Ml Sdv) 20 ml IVPUSH ONETIME STA Stop: 03/10/21 07:35 Last Admin: 03/10/21 07:35 Dose: 15 ml Documented by: Iopamidol (Iopamidol 755 Mg/Ml 500 Ml Multipack Bottle) 100 ml IVPUSH ONETIME ONE Stop: 03/09/21 15:30 Last Admin: 03/09/21 15:30 Dose: 100 ml Documented by: - Exam General: Alert, Oriented, Cooperative HEENT: Pupils Equal, Mucous Membr. Moist/[place] Neck: Trachea Midline Lungs: Clear to Auscultation, Normal Respiratory Effort Cardiovascular: Regular Rate, Regular Rhythm GI/Abdominal Exam: Normal Bowel Sounds, Soft, Non-Tender Extremities: Normal Inspection Neurological: Normal Gait, Strength Equal Bilateral, Sensation Intact - Patient Data Lab Results Last 24 hrs: Laboratory Results - last 24 hr 03/09/21 03/09/21 03/09/21 Range/Units 13:14 13:14 13:14 WBC 5.84 (4.0-11.0) K/uL RBC 4.23 L (4.50-5.90) M/uL Hgb 13.5 (13.0-17.0) g/dL Hct 40.2 (38.0-50.0) % MCV 95.0 (80.0-98.0) fL MCH 31.9 (27.0-32.0) pg MCHC 33.6 (31.0-37.0) g/dL RDW Std Deviation 53.7 (28.0-62.0) fl RDW Coeff of Ashley 16 H (11.0-15.0) % Plt Count 186 (150-400) K/uL MPV 11.10 (7.40-12.00) fL Neut % (Auto) 63.8 (48.0-80.0) % Lymph % (Auto) 26.4 (16.0-40.0) % Lewis % (Auto) 7.9 (0.0-15.0) % Eos % (Auto) 1.7 (0.0-7.0) % Baso % (Auto) 0.2 (0.0-1.5) % Neut # (Auto) 3.7 (1.4-5.7) K/uL Lymph # (Auto) 1.5 (0.6-2.4) K/uL Lewis # (Auto) 0.5 (0.0-0.8) K/uL Eos # (Auto) 0.1 (0.0-0.7) K/uL Baso # (Auto) 0.0 (0.0-0.1) K/uL Nucleated RBC % 0.0 /100WBC Nucleated RBCs # 0 K/uL INR 1.01 APTT 22.9 (18.6-31.3) SEC Sodium 137 (136-148) mmol/L Potassium 4.4 (3.5-5.1) mmol/L Chloride 101 (98-107) mmol/L Carbon Dioxide 28.2 (21.0-32.0) mmol/L BUN 23 H (7.0-18.0) mg/dL Creatinine 1.3 (0.8-1.3) mg/dL Est Cr Clr Drug Dosing TNP Estimated GFR (MDRD) 53.8 ml/min Glucose 147 H (74-106) mg/dL Hemoglobin A1c (4.5 - 6.2) % Calcium 8.3 L (8.5-10.1) mg/dL Phosphorus 3.1 (2.6-4.7) mg/dL Total Bilirubin 0.6 (0.2-1.0) mg/dL AST 18 (15-37) IU/L ALT 16 (14-63) IU/L Alkaline Phosphatase 171 H (46-116) U/L Total Protein 7.4 (6.4-8.2) g/dL Albumin 3.0 L (3.4-5.0) g/dL Globulin 4.4 H (2.6-4.0) g/dL Albumin/Globulin Ratio 0.7 L (0.9-1.6) Triglycerides (0-200) mg/dL Cholesterol (50-200) mg/dL LDL Cholesterol, Calc (60-180) mg/dL VLDL Cholesterol (5-55) mg/dL HDL Cholesterol (40-60) mg/dL Cholesterol/HDL Ratio (3.3-6.0) Urine Opiates Screen (NEGATIVE) Ur Oxycodone Screen (NEGATIVE) Urine Methadone Screen (NEGATIVE) Ur Barbiturates Screen (NEGATIVE) Ur Phencyclidine Scrn (NEGATIVE) Ur Amphetamine Screen (NEGATIVE) U Methamphetamines Scrn (NEGATIVE) U Benzodiazepines Scrn (NEGATIVE) U Cocaine Metab Screen (NEGATIVE) U Marijuana (THC) Screen (NEGATIVE) Ethyl Alcohol < 3.0 mg/dL SARS-CoV-2 RNA (CHRISTOPHE) (NEGATIVE) 03/09/21 03/09/21 03/09/21 Range/Units 14:18 14:32 14:38 WBC (4.0-11.0) K/uL RBC (4.50-5.90) M/uL Hgb (13.0-17.0) g/dL Hct (38.0-50.0) % MCV (80.0-98.0) fL MCH (27.0-32.0) pg MCHC (31.0-37.0) g/dL RDW Std Deviation (28.0-62.0) fl RDW Coeff of Ashley (11.0-15.0) % Plt Count (150-400) K/uL MPV (7.40-12.00) fL Neut % (Auto) (48.0-80.0) % Lymph % (Auto) (16.0-40.0) % Lewis % (Auto) (0.0-15.0) % Eos % (Auto) (0.0-7.0) % Baso % (Auto) (0.0-1.5) % Neut # (Auto) (1.4-5.7) K/uL Lymph # (Auto) (0.6-2.4) K/uL Lewis # (Auto) (0.0-0.8) K/uL Eos # (Auto) (0.0-0.7) K/uL Baso # (Auto) (0.0-0.1) K/uL Nucleated RBC % /100WBC Nucleated RBCs # K/uL INR APTT (18.6-31.3) SEC Sodium (136-148) mmol/L Potassium (3.5-5.1) mmol/L Chloride (98-107) mmol/L Carbon Dioxide (21.0-32.0) mmol/L BUN (7.0-18.0) mg/dL Creatinine (0.8-1.3) mg/dL Est Cr Clr Drug Dosing Estimated GFR (MDRD) ml/min Glucose (74-106) mg/dL Hemoglobin A1c (4.5 - 6.2) % Calcium (8.5-10.1) mg/dL Phosphorus (2.6-4.7) mg/dL Total Bilirubin (0.2-1.0) mg/dL AST (15-37) IU/L ALT (14-63) IU/L Alkaline Phosphatase (46-116) U/L Total Protein (6.4-8.2) g/dL Albumin (3.4-5.0) g/dL Globulin (2.6-4.0) g/dL Albumin/Globulin Ratio (0.9-1.6) Triglycerides 88 (0-200) mg/dL Cholesterol 197 (50-200) mg/dL LDL Cholesterol, Calc 116 (60-180) mg/dL VLDL Cholesterol 17 (5-55) mg/dL HDL Cholesterol 63 H (40-60) mg/dL Cholesterol/HDL Ratio 3.1 L (3.3-6.0) Urine Opiates Screen NEGATIVE (NEGATIVE) Ur Oxycodone Screen NEGATIVE (NEGATIVE) Urine Methadone Screen NEGATIVE (NEGATIVE) Ur Barbiturates Screen NEGATIVE (NEGATIVE) Ur Phencyclidine Scrn NEGATIVE (NEGATIVE) Ur Amphetamine Screen NEGATIVE (NEGATIVE) U Methamphetamines Scrn NEGATIVE (NEGATIVE) U Benzodiazepines Scrn NEGATIVE (NEGATIVE) U Cocaine Metab Screen NEGATIVE (NEGATIVE) U Marijuana (THC) Screen NEGATIVE (NEGATIVE) Ethyl Alcohol mg/dL SARS-CoV-2 RNA (CHRISTOPHE) NEGATIVE (NEGATIVE) 03/10/21 03/10/21 03/10/21 Range/Units 05:35 05:35 05:35 WBC 7.26 (4.0-11.0) K/uL RBC 4.02 L (4.50-5.90) M/uL Hgb 12.6 L (13.0-17.0) g/dL Hct 37.7 L (38.0-50.0) % MCV 93.8 (80.0-98.0) fL MCH 31.3 (27.0-32.0) pg MCHC 33.4 (31.0-37.0) g/dL RDW Std Deviation 53.7 (28.0-62.0) fl RDW Coeff of Ashley 16 H (11.0-15.0) % Plt Count 203 (150-400) K/uL MPV 11.50 (7.40-12.00) fL Neut % (Auto) 70.6 (48.0-80.0) % Lymph % (Auto) 18.0 (16.0-40.0) % Lewis % (Auto) 9.6 (0.0-15.0) % Eos % (Auto) 1.5 (0.0-7.0) % Baso % (Auto) 0.3 (0.0-1.5) % Neut # (Auto) 5.1 (1.4-5.7) K/uL Lymph # (Auto) 1.3 (0.6-2.4) K/uL Lewis # (Auto) 0.7 (0.0-0.8) K/uL Eos # (Auto) 0.1 (0.0-0.7) K/uL Baso # (Auto) 0.0 (0.0-0.1) K/uL Nucleated RBC % 0.0 /100WBC Nucleated RBCs # 0 K/uL INR APTT (18.6-31.3) SEC Sodium 138 (136-148) mmol/L Potassium 4.3 (3.5-5.1) mmol/L Chloride 104 (98-107) mmol/L Carbon Dioxide 25.3 (21.0-32.0) mmol/L BUN 21 H (7.0-18.0) mg/dL Creatinine 1.4 H (0.8-1.3) mg/dL Est Cr Clr Drug Dosing 50.04 Estimated GFR (MDRD) 49.4 ml/min Glucose 115 H (74-106) mg/dL Hemoglobin A1c 5.8 (4.5 - 6.2) % Calcium 7.9 L (8.5-10.1) mg/dL Phosphorus (2.6-4.7) mg/dL Total Bilirubin 0.6 (0.2-1.0) mg/dL AST 13 L (15-37) IU/L ALT 14 (14-63) IU/L Alkaline Phosphatase 154 H (46-116) U/L Total Protein 6.3 L (6.4-8.2) g/dL Albumin 2.7 L (3.4-5.0) g/dL Globulin 3.6 (2.6-4.0) g/dL Albumin/Globulin Ratio 0.8 L (0.9-1.6) Triglycerides (0-200) mg/dL Cholesterol (50-200) mg/dL LDL Cholesterol, Calc (60-180) mg/dL VLDL Cholesterol (5-55) mg/dL HDL Cholesterol (40-60) mg/dL Cholesterol/HDL Ratio (3.3-6.0) Urine Opiates Screen (NEGATIVE) Ur Oxycodone Screen (NEGATIVE) Urine Methadone Screen (NEGATIVE) Ur Barbiturates Screen (NEGATIVE) Ur Phencyclidine Scrn (NEGATIVE) Ur Amphetamine Screen (NEGATIVE) U Methamphetamines Scrn (NEGATIVE) U Benzodiazepines Scrn (NEGATIVE) U Cocaine Metab Screen (NEGATIVE) U Marijuana (THC) Screen (NEGATIVE) Ethyl Alcohol mg/dL SARS-CoV-2 RNA (CHRISTOPHE) (NEGATIVE) Result Diagrams: 03/10/21 05:35 03/10/21 05:35 Sepsis Event Note - Evaluation Sepsis Screening Result: No Definite Risk - Focused Exam Vital Signs: Vital Signs Temp Pulse Resp BP Pulse Ox 03/10/21 07:00 97.0 F 89 16 136/54 L 96 03/10/21 03:00 97.8 F 104 H 16 126/93 H 94 L 03/09/21 23:17 98.5 F 87 16 104/67 93 L - Problem List & Annotations (1) TIA (transient ischemic attack) SNOMED Code(s): 630575940 Code(s): G45.9 - TRANSIENT CEREBRAL ISCHEMIC ATTACK, UNSPECIFIED Status: Acute Current Visit: Yes (2) CVA (cerebral vascular accident) SNOMED Code(s): 564738092 Code(s): I63.9 - CEREBRAL INFARCTION, UNSPECIFIED Status: Acute Current Visit: Yes Qualifiers: Laterality of affected vessel: left (3) Stroke SNOMED Code(s): 026028583 Code(s): I63.9 - CEREBRAL INFARCTION, UNSPECIFIED Status: Acute Current Visit: No - Problem List Review Problem List Initiated/Reviewed/Updated: Yes - My Orders Last 24 Hours: My Active Orders 03/10/21 10:15 Clopidogrel [Plavix] 75 mg PO DAILY - Assessment Assessment:: 1. CVA/TIA -We have initiated Plavix 75 mg per oral route once a day and discontinued aspirin, as per recommendations from neurologist Dr. Goins, we will continue the patient on this medication for 2 to 3 weeks before switching back to aspirin -We will continue the patient on atorvastatin 80 mg per oral route once a day -We will continue with sequential compression devices to prevent any DVTs -Physical therapy will also work with this patient in order to increase his strength and ambulation -A peripheral equipment operator/telemetry has also placed on the patient to assess electrical function of the heart -We will continue to monitor the patient through daily CBCs/BMP
[2021-03-10] MEDS: Clopidogrel 75 MG Tab PO SCH (11:27)
[2021-03-10] MEDS: atorvaSTATin 40 MG Tab PO SCH (21:12)
[2021-03-11 06:50] LABS: POTASSIUM,K 4.3 mmol/L (3.5-5.1)
[2021-03-11] MEDS: Clopidogrel 75 MG Tab PO SCH (08:49)
[2021-03-11] MEDS: Omeprazole 20 MG Cap.CR PO SCH (08:49)
--- NOTE | 2021-03-11 09:57 | PCM.DCSUM1 ---
Discharge Summary - Hospital Course Free Text/Narrative:: The patient is a 75-year-old male, on day 3 of service, who has a significant past medical history of cerebrovascular accident, who was admitted to the medical floor due to right-sided weakness and numbness and was found to have new infarcts on the left side on MRI of the brain. Throughout the patient's hospital stay he was on telemetry/gambling monitor in order to assess his heart's electrical function, he was also assessed regularly for clinical improvements and/or deterioration. After his last CVA, the patient was placed on aspirin and Lipitor. During this hospital stay, Dr. Goins, the hospital neurologist was consulted who suggested we start Plavix 75 mg per oral route, for a 2 to 3-week period, because peer reviewed studies have shown its benefits with respect to new infarcts/CVAs. As a result we will send the patient home with 2 weeks worth of Plavix 75 mg per oral route once a day to be used concurrently with Lipitor. After this 2 weeks the patient can stop Plavix and continue with his previous aspirin medication. The patient is to follow-up with Dr. Goins in 2 weeks time. He is also to follow-up with his PCP Dr. Griffin. He has been educated on the importance of being compliant with his medication and taking them at scheduled times. He has been advised to return to the hospital if he has slurred speech, weakness, change in voice or vision, chest pain, and/or palpitations. The patient is now stable and can be discharged. - Discharge Data Discharge Date: 03/11/21 Discharge Disposition: Home, Self-Care 01 Condition: Stable - Referral to Home Health Primary Care Physician: PCP None - Discharge Diagnosis/Problem(s) (1) TIA (transient ischemic attack) SNOMED Code(s): 843603629 ICD Code: G45.9 - TRANSIENT CEREBRAL ISCHEMIC ATTACK, UNSPECIFIED Status: Acute Current Visit: Yes (2) CVA (cerebral vascular accident) SNOMED Code(s): 686552973 ICD Code: I63.9 - CEREBRAL INFARCTION, UNSPECIFIED Status: Acute Current Visit: Yes Qualifiers: Laterality of affected vessel: left (3) Stroke SNOMED Code(s): 323170607 ICD Code: I63.9 - CEREBRAL INFARCTION, UNSPECIFIED Status: Acute Current Visit: No - Patient Summary/Data Consults: Consultations 03/09/21 21:53 PT Evaluation and Treatment [CONS] Routine - Patient Instructions Diet: Low Sodium Activity: As Tolerated Showering/Bathing: May Shower Other/Special Instructions: -Take plavix and lipitor for 2 weeks and NO aspirin, then after 2 weeks STOP plavix and take aspirin and lipitor. -Return to the hospital if you have slurred speech, weakness, difficulty swallowing, chest pain, and/or palpitations. -Be compliant with your medications and take them at scheduled times. -Follow-up with your PCP Dr. Griffin. -Follow-up with Neurologist Dr. Goins - Discharge Plan *PRESCRIPTION DRUG MONITORING PROGRAM REVIEWED*: Not Applicable *COPY OF PRESCRIPTION DRUG MONITORING REPORT IN PATIENT MARIA C: Not Applicable Prescriptions/Med Rec: Aspirin 81 mg PO DAILY #60 tab.chew atorvaSTATin [Lipitor] 80 mg PO BEDTIME #90 tablet Clopidogrel [Plavix] 75 mg PO DAILY #14 tablet Home Medications: Home Meds Omeprazole 20 mg PO DAILY 11/05/20 [History] Aspirin 81 mg PO DAILY #60 tab.chew 03/11/21 [Rx] Clopidogrel [Plavix] 75 mg PO DAILY #14 tablet 03/11/21 [Rx] atorvaSTATin [Lipitor] 80 mg PO BEDTIME #90 tablet 03/11/21 [Rx] Patient Handouts: Stroke Prevention, Tukh-ey-Mahj, Transient Ischemic Attack, Ecyy-ol-Eqsg, Clopidogrel tablets, Aspirin and Your Heart, Atorvastatin tablets Referrals: Marianna Goins MD [Physician] - (The neurology clinic will call you with your appointment date and time. Please arrive 15 minutes before your appointment, with your ID and wearing a face covering.) Steven Griffin MD [Ordering Only Provider] - (Please arrive 15 minutes before your appointment, with your ID and wearing a face covering.) - Discharge Summary/Plan Comment DC Time >30 min.: Yes Total # of Minutes for Discharge Time: 35 minutes - Review of Systems General: Denies: Fever, Weakness, Fatigue HEENT: Denies: Headaches Pulmonary: Denies: Shortness of Breath, Pleuritic Chest Pain, Cough Cardiovascular: Denies: Chest Pain, Palpitations Gastrointestinal: Denies: Abdominal Pain Genitourinary: Denies: Dysuria Neurological: Denies: Confusion, Dizziness, Numbness, Trouble Speaking, Difficulty Walking, Weakness - Patient Data Vitals - Most Recent: Last Vital Signs Temp 97.8 F 03/11/21 07:30 Pulse 98 03/11/21 07:30 Resp 17 03/11/21 07:30 BP 124/85 03/11/21 07:30 Pulse Ox 94 L 03/11/21 07:30 Weight - Most Recent: 180 lb 0.012 oz I&O - Last 24 hours: Intake & Output 03/10/21 03/11/21 03/11/21 22:59 06:59 14:59 Intake Total 600 Balance 600 Lab Results - Last 24 hrs: Laboratory Results - last 24 hr 03/11/21 03/11/21 Range/Units 05:35 05:35 WBC 6.74 (4.0-11.0) K/uL RBC 3.97 L (4.50-5.90) M/uL Hgb 12.4 L (13.0-17.0) g/dL Hct 37.5 L (38.0-50.0) % MCV 94.5 (80.0-98.0) fL MCH 31.2 (27.0-32.0) pg MCHC 33.1 (31.0-37.0) g/dL RDW Std Deviation 54.4 (28.0-62.0) fl RDW Coeff of Ashley 16 H (11.0-15.0) % Plt Count 176 (150-400) K/uL MPV 10.70 (7.40-12.00) fL Neut % (Auto) 62.0 (48.0-80.0) % Lymph % (Auto) 26.0 (16.0-40.0) % [place] % (Auto) 9.5 (0.0-15.0) % Eos % (Auto) 2.2 (0.0-7.0) % Baso % (Auto) 0.3 (0.0-1.5) % Neut # (Auto) 4.2 (1.4-5.7) K/uL Lymph # (Auto) 1.8 (0.6-2.4) K/uL [place] # (Auto) 0.6 (0.0-0.8) K/uL Eos # (Auto) 0.2 (0.0-0.7) K/uL Baso # (Auto) 0.0 (0.0-0.1) K/uL Nucleated RBC % 0.0 /100WBC Nucleated RBCs # 0 K/uL Sodium 136 (136-148) mmol/L Potassium 4.3 (3.5-5.1) mmol/L Chloride 103 (98-107) mmol/L Carbon Dioxide 26.0 (21.0-32.0) mmol/L BUN 17 (7.0-18.0) mg/dL Creatinine 1.3 (0.8-1.3) mg/dL Est Cr Clr Drug Dosing 53.89 mL/min Estimated GFR (MDRD) 53.8 ml/min Glucose 90 (74-106) mg/dL Calcium 8.4 L (8.5-10.1) mg/dL Med Orders - Current: Current Medications Atorvastatin Calcium (Atorvastatin 40 Mg Tab) 80 mg PO BEDTIME [facility] Last Admin: 03/10/21 21:12 Dose: 80 mg Documented by: Clopidogrel Bisulfate (Clopidogrel 75 Mg Tab) 75 mg PO DAILY [facility] Last Admin: 03/11/21 08:49 Dose: 75 mg Documented by: Omeprazole (Omeprazole 20 Mg Cap.Cr) 20 mg PO DAILY [facility] Last Admin: 03/11/21 08:49 Dose: 20 mg Documented by: Discontinued Medications Aspirin (Aspirin 325 Mg Tab) 325 mg PO ONETIME ONE Stop: 03/09/21 14:31 Last Admin: 03/09/21 14:40 Dose: 325 mg Documented by: Aspirin (Aspirin 81 Mg Tab.Chew) 81 mg PO DAILY [facility] Last Admin: 03/10/21 08:57 Dose: 81 mg Documented by: Clopidogrel Bisulfate (Clopidogrel 75 Mg Tab) 300 mg PO ONETIME ONE Stop: 03/09/21 14:33 Last Admin: 03/09/21 14:40 Dose: 300 mg Documented by: Gadobenate Dimeglumine (Gadobenate Dimeglumine 529 Mg/Ml 20 Ml Sdv) 20 ml IVPUSH ONETIME STA Stop: 03/10/21 07:35 Last Admin: 03/10/21 07:35 Dose: 15 ml Documented by: Iopamidol (Iopamidol 755 Mg/Ml 500 Ml Multipack Bottle) 100 ml IVPUSH ONETIME ONE Stop: 03/09/21 15:30 Last Admin: 03/09/21 15:30 Dose: 100 ml Documented by: - Exam HEENT: Reports: Pupils Equal, Pupils Reactive, Mucous Membr. Moist/[place] Neck: Reports: Trachea Midline Lungs: Reports: Clear to Auscultation, Normal Respiratory Effort Cardiovascular: Reports: Regular Rate, Regular Rhythm GI/Abdominal Exam: Normal Bowel Sounds, Soft, Non-Tender Extremities: Normal Range of Motion Neurological: Reports: Normal Gait, Normal Speech, Strength Equal Bilateral, Sensation Intact
== END 2021-03-11 12:20 | disposition home or self-care (01) | DRG 65 ==
LOC: MW.ED 13:10 → MW.MS 14:33
PROVIDERS: ADMIT Internal Medicine; ATTEND Internal Medicine
DX: I63.9 Cerebral infarction, unspecified (principal); G81.91 Hemiplegia, unspecified affecting right dominant side; R20.0 Anesthesia of skin; K21.9 Gastro-esophageal reflux disease without esophagitis; R29.702 NIHSS score 2; Z20.822 Contact with and (suspected) exposure to COVID-19; Z79.82 Long term (current) use of aspirin; Z79.899 Other long term (current) drug therapy; Z98.49 Cataract extraction status, unspecified eye
CPT/HCPCS: 36415; 70450; 70496; 70498; 80053; 80061; 80307; 84100; 85025; 85610; 85730; 93005; U0002; 70553; 70553-26; 80048; 80305-QW; 83036; 97161-GP; 97530-GP; 99291; A9270-GY; A9577; Q9967

== ENCOUNTER 2022-05-12 23:08 | Inpatient (IN) | payer MEDICARE, OTHER ==
[2022-05-12] MEDS ORDERED: Morphine 4 MG/ML Syringe IVPUSH ONE (23:19)
[2022-05-12] MEDS ORDERED: Ondansetron 4 MG/2 ML SDV IVPUSH ONE (23:19)
[2022-05-12 23:45] LABS: CARBON DIOXIDE,CO2 27.5 mmol/L (21.0-32.0)
[2022-05-13] MEDS ORDERED: Morphine 2 MG/ML SYRINGE IVPUSH PRN ×2 (02:20→08:20)
[2022-05-13] MEDS ORDERED: Ondansetron 4 MG/2 ML SDV IVPUSH PRN ×2 (03:20→08:20)
[2022-05-13] MEDS ORDERED: Polyethylene Glycol 3350 Powder 17 GM Packet PO PRN (06:44)
[2022-05-13] MEDS ORDERED: Albuterol/Ipratropium 3.0-0.5 MG/3 ML Neb Soln NEB PRN (06:44)
[2022-05-13 07:38] LABS: CARBON DIOXIDE,CO2 25.7 mmol/L (21.0-32.0)
[2022-05-13] MEDS ORDERED: Naloxone 0.4 MG/ML SDV IVPUSH PRN (08:20)
[2022-05-13] MEDS ORDERED: fentaNYL 50 MCG/ML SDV IVPUSH PRN (08:20)
[2022-05-13] MEDS ORDERED: HYDROmorphone 1 MG/ML Syringe IVPUSH PRN (08:20)
[2022-05-13] MEDS ORDERED: Metoclopramide 10 MG/2 ML SDV IVPUSH PRN (08:20)
[2022-05-13] MEDS ORDERED: Albuterol 0.083% 2.5 MG/3 ML Neb Soln NEB PRN (08:20)
[2022-05-13] MEDS ORDERED: Ropivacaine 0.5% 5 MG/ML 30 ML SDV ONE (09:04)
[2022-05-13] MEDS ORDERED: Sodium Chloride 0.9% 1,000 ML IV SCH (09:45)
[2022-05-13] MEDS ORDERED: Propofol 200 MG/20 ML SDV ONE (09:58)
[2022-05-13] MEDS ORDERED: fentaNYL 250 MCG/5 ML SDV ONE (09:58)
[2022-05-13] MEDS ORDERED: Dexamethasone 4 MG/ML 5 ML MDV ONE (10:47)
[2022-05-13] MEDS ORDERED: Lidocaine 2% 5 ML SDV ONE (10:47)
[2022-05-13] MEDS ORDERED: Ketorolac 30 MG/ML SDV ONE (10:47)
[2022-05-13] MEDS ORDERED: Ondansetron 4 MG/2 ML SDV ONE (10:47)
[2022-05-13] MEDS ORDERED: Bupivacaine 0.25%/EPINEPHrine 1:200,000 10 ML SDV ONE (10:56)
[2022-05-13] MEDS ORDERED: Rocuronium Bromide 50 MG/5 ML Syringe ONE (11:00)
[2022-05-13] MEDS ORDERED: ceFAZolin 2 GM Vial ONE (11:42)
[2022-05-13] MEDS ORDERED: Water For Injection, Sterile 20 ML ONE (11:43)
[2022-05-13] MEDS ORDERED: Phenylephrine 1% 10 MG/ML SDV ONE (11:46)
[2022-05-13] MEDS ORDERED: Sugammadex Sodium 200 MG/2 ML VIAL ONE (12:08)
[2022-05-13] MEDS ORDERED: traMADol 50 MG Tab PO PRN (13:14)
[2022-05-13] MEDS ORDERED: Bisacodyl 10 MG Supp RECTAL PRN (13:14)
[2022-05-13] MEDS ORDERED: Aluminum Hydroxide/Magnesium Hydroxide/Simethicone XS Susp 30 ML Cup PO PRN (13:14)
[2022-05-13] MEDS ORDERED: oxyCODONE 5 MG Tab PO PRN (13:14)
[2022-05-13] MEDS: Acetaminophen 325 MG Tab PO SCH ×2 (17:00→20:00)
[2022-05-13] MEDS: Docusate Sodium 100 MG Cap PO SCH (20:01)
[2022-05-13] MEDS: Aspirin 81 MG Tab.EC PO SCH (20:01)
[2022-05-13] MEDS: ceFAZolin 2 GM in Premix Bag 1 BAG IV SCH (20:02)
[2022-05-14] MEDS: Acetaminophen 325 MG Tab PO SCH ×6 (04:22→20:19)
[2022-05-14] MEDS: ceFAZolin 2 GM in Premix Bag 1 BAG IV SCH (04:22)
[2022-05-14 06:55] LABS: CARBON DIOXIDE,CO2 23.4 mmol/L (21.0-32.0); POTASSIUM,K 4.2 mmol/L (3.5-5.1)
[2022-05-14] MEDS: Docusate Sodium 100 MG Cap PO SCH ×2 (09:51→20:19)
[2022-05-14] MEDS: Aspirin 81 MG Tab.EC PO SCH (09:52)
[2022-05-14] MEDS: Omeprazole 20 MG Cap.CR PO SCH (09:53)
[2022-05-14] MEDS: Clopidogrel 75 MG Tab PO SCH (13:29)
[2022-05-14] MEDS: atorvaSTATin 40 MG Tab PO SCH (20:20)
[2022-05-15] MEDS: Acetaminophen 325 MG Tab PO SCH ×5 (00:34→22:03)
[2022-05-15 05:51] LABS: CARBON DIOXIDE,CO2 26.4 mmol/L (21.0-32.0); POTASSIUM,K 4.4 mmol/L (3.5-5.1)
[2022-05-15] MEDS: Omeprazole 20 MG Cap.CR PO SCH (09:16)
[2022-05-15] MEDS: Clopidogrel 75 MG Tab PO SCH (09:17)
[2022-05-15] MEDS: Aspirin 81 MG Tab.EC PO SCH (09:17)
[2022-05-15] MEDS: Docusate Sodium 100 MG Cap PO SCH ×2 (09:18→22:03)
[2022-05-15] MEDS: atorvaSTATin 40 MG Tab PO SCH (22:02)
[2022-05-16] MEDS: Acetaminophen 325 MG Tab PO SCH ×4 (03:34→22:14)
[2022-05-16 06:32] LABS: CARBON DIOXIDE,CO2 24.7 mmol/L (21.0-32.0); POTASSIUM,K 4.2 mmol/L (3.5-5.1)
[2022-05-16] MEDS: Aspirin 81 MG Tab.EC PO SCH (08:28)
[2022-05-16] MEDS: Docusate Sodium 100 MG Cap PO SCH ×2 (08:28→20:55)
[2022-05-16] MEDS: Omeprazole 20 MG Cap.CR PO SCH (08:28)
[2022-05-16] MEDS: Clopidogrel 75 MG Tab PO SCH (08:28)
[2022-05-16] MEDS: atorvaSTATin 40 MG Tab PO SCH (20:55)
[2022-05-17] MEDS: Acetaminophen 325 MG Tab PO SCH ×4 (04:16→21:19)
[2022-05-17 08:06] LABS: CARBON DIOXIDE,CO2 26.5 mmol/L (21.0-32.0); POTASSIUM,K 4.2 mmol/L (3.5-5.1)
[2022-05-17] MEDS: Clopidogrel 75 MG Tab PO SCH (09:46)
[2022-05-17] MEDS: Docusate Sodium 100 MG Cap PO SCH ×3 (09:46→21:19)
[2022-05-17] MEDS: Omeprazole 20 MG Cap.CR PO SCH (09:46)
[2022-05-17] MEDS: Aspirin 81 MG Tab.EC PO SCH (09:46)
[2022-05-17] MEDS: atorvaSTATin 40 MG Tab PO SCH (21:19)
[2022-05-18] MEDS: Acetaminophen 325 MG Tab PO SCH ×4 (03:10→21:07)
[2022-05-18 06:20] LABS: CARBON DIOXIDE,CO2 25.9 mmol/L (21.0-32.0); POTASSIUM,K 4.2 mmol/L (3.5-5.1)
[2022-05-18] MEDS: Omeprazole 20 MG Cap.CR PO SCH (09:17)
[2022-05-18] MEDS: Aspirin 81 MG Tab.EC PO SCH (09:17)
[2022-05-18] MEDS: Clopidogrel 75 MG Tab PO SCH (09:21)
[2022-05-18] MEDS: Docusate Sodium 100 MG Cap PO SCH ×2 (09:25→21:08)
[2022-05-18] MEDS: atorvaSTATin 40 MG Tab PO SCH (21:07)
[2022-05-19] MEDS: Acetaminophen 325 MG Tab PO SCH ×2 (03:27→09:23)
[2022-05-19] MEDS: Aspirin 81 MG Tab.EC PO SCH (09:25)
[2022-05-19] MEDS: Omeprazole 20 MG Cap.CR PO SCH (09:26)
[2022-05-19] MEDS: Clopidogrel 75 MG Tab PO SCH (09:26)
[2022-05-19] MEDS: Docusate Sodium 100 MG Cap PO SCH (09:27)
== END 2022-05-19 12:24 | disposition home health service (06) | DRG 482 ==
LOC: MW.ED 23:08 → MW.MS 05-13 00:07
PROVIDERS: ADMIT Internal Medicine; ATTEND Internal Medicine
PROC: 0QS704Z Reposition Left Upper Femur with Internal Fixation Device, Open Approach (ICD-10-PCS; principal; 2022-05-13)
DX: S72.002A Fracture of unspecified part of neck of left femur, initial encounter for closed fracture (principal); Z20.822 Contact with and (suspected) exposure to COVID-19; I10 Essential (primary) hypertension; E78.5 Hyperlipidemia, unspecified; W19.XXXA Unspecified fall, initial encounter; K21.9 Gastro-esophageal reflux disease without esophagitis; Z87.81 Personal history of (healed) traumatic fracture; Z98.890 Other specified postprocedural states; Z79.02 Long term (current) use of antithrombotics/antiplatelets; Z79.82 Long term (current) use of aspirin; Z79.899 Other long term (current) drug therapy; Z86.73 Personal history of transient ischemic attack (TIA), and cerebral infarction without residual deficits; W00.0XXA Fall on same level due to ice and snow, initial encounter
CPT/HCPCS: 01230; 36415; 64447; 70450; 70450-26; 73502-26-LT; 73502-LT; 80053; 85025; 85610; 85730; 93005; 96374; 96375; 97110-GP; 97116-GP; 97162-GP; 97530-GP; 99100; 99284; 99285-25; A9270-GY; J0131; J0690; J1100; J1885; J2270; J2370; J2405; J2704; J2795; J3010; J3490; U0002